=== PATIENT | female | born 1975 | race Caucasian/White ===

== ENCOUNTER 2023-10-09 06:59 | Emergency (ER) | payer OTHER, MEDICAID, SELFPAY ==
[2023-10-09] VITALS (8 sets, daily range): BP systolic 117–138; BP diastolic 71–83; PULSE 95–122; RESP 20; TEMP 36.4–37.3; O2SAT 94–100; BMI 24.0
--- NOTE | 2023-10-09 07:16 | ED_ITS ---
HPI - General Adult General Chief complaint: Abdominal Pain Stated complaint: gallbladder issues, vomiting, not urinating Time Seen by Provider: 10/09/23 07:07 Source: patient Mode of arrival: Ambulatory Limitations: no limitations History of Present Illness HPI narrative: Patient is a 48-year-old female here for evaluation of upper abdominal discomfort. She states she thinks that she maybe passing gallstones. Has never been diagnosed with gallstones or had her gallbladder evaluated. Pain is in the upper abdomen and wraps around her back. Has been present for ?some time? she was also here because of having nausea and vomiting. She also states she would ?heat stroke? 2 times in a week. She thinks that the amount that she was drinking is not equivalent to the amount that she was urinating. She was still urinating. She did urinate this morning. No fevers. Related Data Previous Rx's Medication Instructions Recorded cyclobenzaprine 10 mg tablet 10 mg PO TID PRN muscle spasm #12 10/09/23 tabs Review of Systems Review of Systems ROS Unobtainable: All systems reviewed & are unremarkable except as noted in HPI and below Patient History Social History Smoking Status: Former smoker Exam Initial Vital Signs Initial Vital Signs: Vital Signs Pulse Rate 121 H 10/09/23 07:17 Blood Pressure 117/73 10/09/23 07:17 Pulse Oximetry 94 10/09/23 07:17 Const General: cooperative, comfortable and No ill appearing HENMT Head: normal to inspection and normocephalic Resp Effort & Inspection: normal respiratory effort Auscultation: clear to auscultation bilaterally Cardio Rate: regular rate Rhythm: regular rhythm GI Inspection: normal to inspection and non-distended Palpation: soft, No firm, No guarding and No tender Skin General: no rashes or lesions noted Neuro General: patient alert and patient awake Course Orders Ordered: ED Orders 10/09/23 07:17 US abdomen limited Stat 10/09/23 07:40 Complete Blood Count AUTO DIFF Stat Comprehensive Metabolic Panel Stat Lipase Stat 10/09/23 07:54 EKG-12 Lead Routine 10/09/23 08:08 XR abdomen 1V Stat 10/09/23 09:40 Urine Microscopic Stat Discontinued Medications Sodium Chloride (Normal Saline 0.9%) 1,000 mls @ 1,000 mls/hr IV BOLUS ONE Stop: 10/09/23 08:15 Last Infusion: 10/09/23 08:32 Dose: Infused Documented By: Admin: 10/09/23 07:57 Dose: 1,000 mls/hr Documented By: ELEONORA Ondansetron HCl (Ondansetron 4 Mg/2 Ml Inj) 4 mg IV NOW ONE Stop: 10/09/23 07:10 Last Admin: 10/09/23 07:57 Dose: 4 mg Documented By: ELEONORA Vital Signs Vital signs: Vital Signs - 8 hr 10/09/23 07:17 10/09/23 07:17 10/09/23 07:22 Temperature 99.1 F Pulse Rate 121 H 95 H Respiratory Rate 20 Blood Pressure 117/73 117/73 Pulse Oximetry 94 98 Oxygen Delivery Method Room Air 10/09/23 07:30 10/09/23 08:00 10/09/23 08:30 Temperature Pulse Rate 122 H 109 H 111 H Respiratory Rate Blood Pressure Pulse Oximetry 100 99 99 Oxygen Delivery Method 10/09/23 08:30 Temperature Pulse Rate Respiratory Rate Blood Pressure 122/71 Pulse Oximetry Oxygen Delivery Method Medical Decision Making Lab Data Lab results reviewed: Yes I reviewed the patient's lab results. 10/09/23 07:40 10/09/23 07:40 Labs: Lab Results 10/09/23 Range/Units 07:40 WBC 9.5 (4.5-11.0) X10^3/uL RBC 3.43 L (4.0-5.2) X10^6/uL Hgb 12.1 (12.0-16.0) g/dL Hct 35.0 L (36-46) % MCV 102.2 H (80-100) fL MCH 35.3 H (26-34) PG MCHC 34.5 (30-36) % RDW 14.3 (11.6-14.8) % Plt Count 132 L (150-400) X10^3/uL Neut % (Auto) 83.4 H (50-75) % Lymph % (Auto) 3.4 L (25-40) % [place] % (Auto) 11.7 (3-14) % Eos % (Auto) 0.4 L (2-4) % Baso % (Auto) 1.1 (0-2) % Neut # (Auto) 7900 H (5010-2916) /uL Lymph # (Auto) 300 L (5374-9981) /uL [place] # (Auto) 1100 H (0-900) /uL Eos # (Auto) 0 (0-450) /uL Baso # (Auto) 100 (0-100) /uL RBC Morphology Normal morphology Sodium 126 L (137-145) mmol/L Potassium 3.7 (3.4-5.1) mmol/L Chloride 96 L (98-107) mmol/L Carbon Dioxide 20 L (22-32) mmol/L BUN 12 (7-17) mg/dL Creatinine 0.69 (0.52-1.04) mg/dL Estimated GFR > 60 (>60) mL/min BUN/Creatinine Ratio 17.4 (6-22) Glucose 139 H (70-100) mg/dL Calcium 8.5 (8.4-10.2) mg/dL Total Bilirubin 1.3 (0.2-1.3) mg/dL AST 31 (14-36) IU/L ALT 29 (<35) IU/L Alkaline Phosphatase 80 (38-126) U/L Total Protein 6.8 (6.3-8.2) g/dL Albumin 3.7 (3.5-5.0) g/dL Globulin 3.1 (1.7-4.1) g/dL Albumin/Globulin Ratio 1.2 (1.0-2.8) Lipase 22 L (23-300) U/L Urine Dip Bedside Urine Glucose Negative Bedside Urine Bilirubin - Negative Bedside Urine Ketone ++ 40 Urine Specific [place] 1.025 Bedside Urine Occult Blood +/- Bedside Urine pH 6.0 Bedside Urine Protein ++ 100 Bedside Urine Urobilinogen +/- 1mg Bedside Urine Nitrite - Negative Bedside Urine Leukocytes - Negative Esterase Point of care testing: Urine Dip Bedside Urine Glucose Negative Bedside Urine Bilirubin - Negative Bedside Urine Ketone ++ 40 Urine Specific [place] 1.025 Bedside Urine Occult Blood +/- Bedside Urine pH 6.0 Bedside Urine Protein ++ 100 Bedside Urine Urobilinogen +/- 1mg Bedside Urine Nitrite - Negative Bedside Urine Leukocytes - Negative Esterase Imaging Data US - abdomen: Radiologist's Impression: PROCEDURE: US ABDOMEN LIMITED INDICATIONS: RUQ PAIN TECHNIQUE: Real-time focused scanning was performed of the abdomen, with image documentation. COMPARISON: None. FINDINGS: Liver measures 18 cm. Overall unremarkable sonographic appearance. Gallbladder is unremarkable. No stones or focal tenderness. CBD is 5 mm, within normal limits. Visualized pancreas is unremarkable. IMPRESSION: No acute right upper quadrant sonographic abnormality. Abdominal x-ray: Radiologist's Impression: PROCEDURE: XR ABDOMEN 1V INDICATIONS: upper abd pain possible constipation TECHNIQUE: One view of the abdomen acquired. COMPARISON: None. FINDINGS: Surgical changes and devices: None. Bowel: Bowel gas pattern is normal. Soft tissues: No suspicious abdominal calcifications. Visualized solid organ contours appear normal in size. Bones: No suspicious bony lesions. IMPRESSION: Nonobstructive bowel gas pattern. No significant stool burden. MDM Narrative Medical decision making narrative: Labs unremarkable. X-ray is unremarkable. Right upper quadrant ultrasound is unremarkable. She was not retaining urine. No signs of infection. No fevers. She does have ketones in her urine which can be indicative of a degree of dehydration which is what she was concerned about. No indication for antibiotics. No indication for admission to the hospital. No indication for surgical consultation. Will discharge patient home with return precautions. She expressed understanding and agreement with plan. Discharge Plan Departure Patient Disposition: Home Clinical Impression: Abdominal pain Instructions: DI for Abdominal Pain-Adult Activity Restrictions/Additional Instructions: I do recommend that you increase your fluid intake. Also recommend a bland diet for the next couple days that you can advance as tolerated. You can contact [phone] to help you establish a primary doctor in the local area. He was the muscle relaxers as needed. Return to the emergency department for new symptoms. Prescriptions: New cyclobenzaprine 10 mg tablet 10 mg PO TID PRN (Reason: muscle spasm) Qty: 12 0RF Stand Alone Forms: Patient Portal/API
--- NOTE | 2023-10-09 07:17 | DI.US.S_ITS ---
PROCEDURE: US ABDOMEN LIMITED INDICATIONS: RUQ PAIN TECHNIQUE: Real-time focused scanning was performed of the abdomen, with image documentation. COMPARISON: None. FINDINGS: Liver measures 18 cm. Overall unremarkable sonographic appearance. Gallbladder is unremarkable. No stones or focal tenderness. CBD is 5 mm, within normal limits. Visualized pancreas is unremarkable. IMPRESSION: No acute right upper quadrant sonographic abnormality. Dictated by: Bharathi Paiz M.D. on 10/09/2023 at 8:03 Approved by: Bharathi Paiz M.D. on 10/09/2023 at 8:04
--- NOTE | 2023-10-09 07:54 | EKG_ITS ---
[address] [address] [address] [address] Test Date: 2023-10-09 Pat Name: Diana Lino Department: Room: Gender: Female Nuclear Medicine Technician: KYLAH : 1975 Requested By: Order Number: [id number] Reading MD: Bi Sr MD Measurements Intervals [place] Rate: 111 P: 55 NE: 142 QRS: 73 QRSD: 82 T: 61 QT: 320 QTc: 435 Interpretive Statements Sinus tachycardia Electronically Signed On 10-09-2023 17:21:57 PDT by Bi Sr MD
[2023-10-09] MEDS: SODIUM CHLORIDE 0.9% 1,000 ML 1000 ML IV (07:57)
[2023-10-09] MEDS: ONDANSETRON 4 MG/2 ML INJ IV (07:57)
[2023-10-09 08:00] LABS: Basophils Absolute Auto 100 /uL (0-100); Basophils Percent Auto 1.1 % (0-2); Eosinophils Absolute Auto 0 /uL (0-450); Eosinophils Percent Auto 0.4 % (2-4); Hemoglobin 12.1 g/dL (12.0-16.0); Lymphocytes Absolute Auto 300 /uL (1100-4500); Lymphocytes Percent Auto 3.4 % (25-40); Mean Corpuscular HGB Conc 34.5 % (30-36); Mean Corpuscular Hemoglobin 35.3 PG (26-34); Mean Corpuscular Volume 102.2 fL (80-100); Monocytes Absolute Auto 1100 /uL (0-900); Monocytes Percent Auto 11.7 % (3-14); Neutrophils Absolute Auto 7900 /uL (1500-7000); Neutrophils Percent Auto 83.4 % (50-75); Platelet Count 132 X10^3/uL (150-400); Red Blood Cell Count 3.43 X10^6/uL (4.0-5.2); Red Cell Distribution Width 14.3 % (11.6-14.8); White Blood Cell Count 9.5 X10^3/uL (4.5-11.0)
[2023-10-09 08:01] LABS: Add Manual Diff / Slide Review SLIDE REVIEW
[2023-10-09 08:03] LABS: Alanine Aminotransferase 29 IU/L (<35); Albumin 3.7 g/dL (3.5-5.0); Albumin Globulin Ratio 1.2 (1.0-2.8); Alkaline Phosphatase 80 U/L (38-126); Aspartate Aminotransferase 31 IU/L (14-36); BUN Creatinine Ratio 17.4 (6-22); Bilirubin Total 1.3 mg/dL (0.2-1.3); Blood Urea Nitrogen 12 mg/dL (7-17); Calcium 8.5 mg/dL (8.4-10.2); Carbon Dioxide 20 mmol/L (22-32); Chloride 96 mmol/L (98-107); Estimated Glomerular Filt Rate > 60 mL/min (>60); Globulin 3.1 g/dL (1.7-4.1); Glucose 139 mg/dL (70-100); HEMOLYSIS 35 (0-50); Lipase 22 U/L (23-300); Potassium 3.7 mmol/L (3.4-5.1); Sodium 126 mmol/L (137-145); Total Protein 6.8 g/dL (6.3-8.2)
--- NOTE | 2023-10-09 08:08 | DI.RAD.S_ITS ---
PROCEDURE: XR ABDOMEN 1V INDICATIONS: upper abd pain possible constipation TECHNIQUE: One view of the abdomen acquired. COMPARISON: None. FINDINGS: Surgical changes and devices: None. Bowel: Bowel gas pattern is normal. Soft tissues: No suspicious abdominal calcifications. Visualized solid organ contours appear normal in size. Bones: No suspicious bony lesions. IMPRESSION: Nonobstructive bowel gas pattern. No significant stool burden. Dictated by: Yoshi Gibson M.D. on 10/09/2023 at 9:07 Approved by: Yoshi Gibson M.D. on 10/09/2023 at 9:08
[2023-10-09 08:55] LABS: RBC Morphology Normal Morphology
[2023-10-09 10:18] LABS: Bacteria Urine Few (2-10); Culture Indicated Urine Specimen Cultured; RBC Urine 1-5/HPF (0-5/HPF); Squamous Epithelial Cell Urine 1-5 /HPF (0-5/HPF); Urine Volume 10mL (spun); WBC Urine 10-30/HPF (0-5/HPF)
== END 2023-10-09 10:17 | disposition home or self-care (01) ==
PROVIDERS: Emergency Provider Emergency Medicine
DX: R10.11 Right upper quadrant pain (principal)
CPT/HCPCS: 36415; 51798; 74018; 76705; 80053; 81003; 81015; 83690; 85025; 87077; 87086; 87186; 93005; 93010; 96361; 96374; 99284; J2405

== ENCOUNTER 2024-01-20 07:52 | Emergency (ER) | payer OTHER, MEDICAID, SELFPAY ==
[2024-01-20] VITALS (13 sets, daily range): BP systolic 100–145; BP diastolic 61–94; PULSE 80–110; RESP 14–26; TEMP 36.5; O2SAT 85–100; BMI 22.3
--- NOTE | 2024-01-20 08:19 | ED_ITS ---
HPI - Nausea/Vomiting/Diarrhea General Chief complaint: Nausea/Vomiting/Diarrhea Stated complaint: fatigue, abd pain Time Seen by Provider: 01/20/24 08:11 History of Present Illness HPI Narrative: Patient here with her son. Complaints 12 days of nausea and vomiting with epigastric discomfort. Pain is worse with trying to eat. She has been under lot of stress. No regular NSAIDs. Drinks occasionally through the week but no heavy drinking she states. Denies abdominal surgical history. No urinary complaints no back pain. No fever chills. No cough cold or congestion. Patient is seen here October 2023 for similar complaints. Had unremarkable blood work and ultrasound of the abdomen. No CT scans done. No prior history of gastritis or acid reflux. No history of endoscopy Related Data Previous Rx's Medication Instructions Recorded cyclobenzaprine 10 mg tablet 10 mg PO TID PRN muscle spasm #12 10/09/23 tabs ondansetron 4 mg disintegrating 4 mg PO Q8H PRN nausea and 01/20/24 tablet vomiting #20 tabs pantoprazole 40 mg tablet,delayed 40 mg PO DAILY #30 tabs 01/20/24 release (Protonix) Allergies Allergy/AdvReac Type Severity Reaction Status Date / Time No Known Drug Allergies Allergy Verified 01/20/24 08:24 Review of Systems Review of Systems Narrative: GENERAL: Negative chills, fatigue, malaise, fever, sweats. HEENT: Negative sinus pain, ear pain, sore throat RESPIRATORY: Negative dyspnea, cough CARDIOVASCULAR: Negative chest pain, palpitations GASTROINTESTINAL: Positive nausea, vomiting, abdominal pain : Negative dysuria, frequency, hematuria MUSCULOSKELETAL: Negative muscle or bony pain SKIN: Negative rash, skin lesions NEUROLOGIC: Negative weakness, numbness ROS Unobtainable: All systems reviewed & are unremarkable except as noted in HPI and below Patient History Social History Smoking Status: Former smoker Smoking Status: Former smoker alcohol intake frequency: a few times a week Substance Use Type: marijuana and methamphetamine Exam Narrative Exam Narrative: GENERAL: in no distress, not toxic not dyspneic HEAD: Normocephalic. EYES: Pupils equal round ENT: Mucous membranes moist. NECK: Trachea midline. CARDIOVASCULAR: Regular rate and rhythm RESPIRATORY: Clear to auscultation. Breath sounds equal bilaterally. No wheezes, rales, or rhonchi. GASTROINTESTINAL: Abdomen soft, mild epigastric tenderness no peritoneal signs bowel sounds are present. Negative Sullivan sign. Bowel sounds are present, no pain out of portion exam. No guarding or rebound. No CVA tenderness EXTREMITIES: No gross deformities. BACK: No flank tenderness. NEURO: AOx4. SKIN: Warm and dry PSYCH: Not anxious, is cooperative Initial Vital Signs Initial Vital Signs: Vital Signs Pulse Rate 110 H 01/20/24 08:01 Pulse Oximetry 96 01/20/24 08:01 Course Orders Ordered: Discontinued Medications Al Hydrox/Mg Hydrox/Simethicone 20 ml/ Lidocaine HCl 15 ml 0 ml PO NOW ONE Stop: 01/20/24 08:19 Last Admin: 01/20/24 09:12 Dose: 35 ml Documented By: JOSE Sodium Chloride (Normal Saline 0.9%) 1,000 mls @ 1,000 mls/hr IV BOLUS ONE Stop: 01/20/24 09:17 Last Infusion: 01/20/24 10:37 Dose: Infused Documented By: Admin: 01/20/24 09:08 Dose: 1,000 mls/hr Documented By: JOSE Ondansetron HCl (Ondansetron 4 Mg/2 Ml Inj) 4 mg IV NOW ONE Stop: 01/20/24 08:18 Last Admin: 01/20/24 09:09 Dose: 4 mg Documented By: JOSE Pantoprazole Sodium (Pantoprazole 40 Mg Vial) 40 mg IV NOW ONE Stop: 01/20/24 08:18 Last Admin: 01/20/24 09:09 Dose: 40 mg Documented By: JOSE Vital Signs Vital signs: Vital Signs - 8 hr 01/20/24 08:01 01/20/24 08:02 01/20/24 08:02 Temperature Pulse Rate 110 H 105 H Respiratory Rate Blood Pressure 145/93 H Pulse Oximetry 96 96 Oxygen Delivery Method 01/20/24 08:13 01/20/24 08:30 01/20/24 09:00 Temperature 97.7 F Pulse Rate 105 H 94 H 96 H Respiratory Rate 16 18 16 Blood Pressure 145/93 H Pulse Oximetry 97 96 96 Oxygen Delivery Method Room Air 01/20/24 09:10 01/20/24 09:10 01/20/24 09:36 Temperature Pulse Rate 99 H 104 H Respiratory Rate 26 H 14 Blood Pressure 104/70 Pulse Oximetry 100 85 L Oxygen Delivery Method 01/20/24 09:36 01/20/24 10:00 01/20/24 10:00 Temperature Pulse Rate 88 Respiratory Rate 17 Blood Pressure 142/94 H 113/73 Pulse Oximetry 98 Oxygen Delivery Method 01/20/24 10:30 01/20/24 10:30 01/20/24 11:00 Temperature Pulse Rate 84 Respiratory Rate 17 Blood Pressure 111/65 100/61 Pulse Oximetry 99 Oxygen Delivery Method 01/20/24 11:00 01/20/24 11:30 01/20/24 11:30 Temperature Pulse Rate 94 H 109 H Respiratory Rate 18 17 Blood Pressure 104/61 Pulse Oximetry 94 94 Oxygen Delivery Method 01/20/24 12:00 01/20/24 12:00 Temperature Pulse Rate 91 H Respiratory Rate 17 Blood Pressure 102/67 Pulse Oximetry 96 Oxygen Delivery Method MDM - Nausea/Vomiting/Diarrhea Lab Data 01/20/24 08:45 01/20/24 08:45 Labs: Lab Results 01/20/24 01/20/24 Range/Units 08:32 08:45 WBC 5.5 (4.5-11.0) X10^3/uL RBC 3.61 L (4.0-5.2) X10^6/uL Hgb 13.1 (12.0-16.0) g/dL Hct 38.6 (36-46) % MCV 106.9 H (80-100) fL MCH 36.2 H (26-34) PG MCHC 33.9 (30-36) % RDW 15.2 H (11.6-14.8) % Plt Count 216 (150-400) X10^3/uL Neut % (Auto) 59.4 (50-75) % Lymph % (Auto) 23.9 L (25-40) % [place] % (Auto) 13.8 (3-14) % Eos % (Auto) 1.9 L (2-4) % Baso % (Auto) 1.0 (0-2) % Neut # (Auto) 3300 (5077-8195) /uL Lymph # (Auto) 1300 (5882-9401) /uL [place] # (Auto) 800 (0-900) /uL Eos # (Auto) 100 (0-450) /uL Baso # (Auto) 100 (0-100) /uL Sodium 136 L (137-145) mmol/L Potassium 3.7 (3.4-5.1) mmol/L Chloride 94 L (98-107) mmol/L Carbon Dioxide 25 (22-32) mmol/L BUN 7 (7-17) mg/dL Creatinine 0.62 (0.52-1.04) mg/dL Estimated GFR > 60 (>60) mL/min BUN/Creatinine Ratio 11.3 (6-22) Glucose 91 (70-100) mg/dL Calcium 9.7 (8.4-10.2) mg/dL Total Bilirubin 0.7 (0.2-1.3) mg/dL AST 199 H (14-36) IU/L ALT 122 H (<35) IU/L Alkaline Phosphatase 78 (38-126) U/L Total Protein 7.8 (6.3-8.2) g/dL Albumin 4.7 (3.5-5.0) g/dL Globulin 3.1 (1.7-4.1) g/dL Albumin/Globulin Ratio 1.5 (1.0-2.8) Lipase 109 (23-300) U/L Serum , Qual Negative (Negative) Chlamy pneumoniae PCR Not detected (Not Detect) Adenovirus (PCR) Not detected (Not Detect) B. pertussis DNA (PCR) Not detected (Not Detect) B.parapertussis DNA PCR Not detected (Not Detecte) Coronavirus OC43 (PCR) Not detected (Not Detect) Coronavirus HKU1 (PCR) Not detected (Not Detect) Coronavirus 229E (PCR) Not detected (Not Detect) SARS-CoV-2 (PCR) Not detected (Not Detecte) Coronavirus NL63 (PCR) Not detected (Not Detect) Human Metapneumovir PCR Not detected (Not Detect) Influenza Type A (PCR) Not detected (Not Detect) Influenza Type B (PCR) Not detected (Not Detect) M. pneumoniae (PCR) Not detected (Not Detect) Parainfluenza 1 (PCR) Not detected (Not Detect) Parainfluenza 2 (PCR) Not detected (Not Detect) Parainfluenza 3 (PCR) Not detected (Not Detect) Parainfluenza 4 (PCR) Not detected (Not Detect) RSV (PCR) Not detected (Not Detect) Entero/Rhino (PCR) Not detected (Not Detect) Imaging Data CT scan - abdomen/pelvis: Radiologist's Impression: [address] [address] [address] Scan Report Signed Patient: Abdulaziz Ruiz MR#: [id number] : 01/17/1946 Acct:[id number] Age/Sex: 78 / M Date of Service: 01/20/24 Loc: ED Accession Number: [id number] Procedure: CT angio chest PE protocol Ordering Provider: Jarett Watkins MD PROCEDURE: CT ANGIO CHEST PE PROTOCOL INDICATIONS: Dyspnea TECHNIQUE: After the administration of intravenous contrast, 2 mm thick sections acquired from the pulmonary apices to the posterior costophrenic angles. 3-dimensional maximum intensity projection (MIP) coronal and sagittal reformats were then acquired through the thorax. For radiation dose reduction, the following was used: automated exposure control, adjustment of mA and/or kV according to patient size. COMPARISON: None. FINDINGS: Image quality: Diagnostic. Pulmonary arteries: Pulmonary arteries are normal in size, and demonstrate no intraluminal filling defects to suggest central pulmonary embolism. Lower Neck: No enlarged lymph nodes. Thyroid: No thyroid nodules which require sonographic follow up, per consensus guidelines. Axillae: No enlarged lymph nodes. Chest Wall: Left chest wall generator with cardiac leads. Bones: Unremarkable. Lungs and Pleura: Multifocal consolidation, predominantly within the left lower lobe and right middle lobe. Superimposed bronchial thickening. Airways are clear otherwise. Heart: Heart size is enlarged, with a prosthetic aortic valve. No pericardial effusion. Thoracic Vessels: No aortic aneurysm. Mediastinum and Niki: Reactive mediastinal lymph nodes. Esophagus: No wall thickening. No hiatal hernia. Upper Abdomen: Reflux of contrast into the IVC, indicating elevated right heart pressures. IMPRESSION: No pulmonary embolus. Multifocal consolidation, either infection or possibly aspiration due to distribution. Correlate with risk factors for aspiration and consider speech pathology referral. Recommend follow-up in 1-2 months with chest x-ray to ensure resolution. Reflux of contrast into the IVC, indicating elevated heart pressures. Dictated by: Christiano Zaldivar M.D. on 01/20/2024 at 9:30 Approved by: Christiano Zaldivar M.D. on 01/20/2024 at 9:35 US - abdomen: Radiologist's Impression: [address] [address] Ultrasound Report Signed Patient: Diana Lino MR#: [id number] : 1975 Acct:[id number] Age/Sex: 48 / F Date of Service: 01/20/24 Loc: ED Accession Number: [id number] Procedure: US abdomen limited Ordering Provider: Jarett Watkins MD PROCEDURE: US ABDOMEN LIMITED INDICATIONS: Abdominal pain/attention gallbladder TECHNIQUE: Real-time scanning was performed of the abdominal and retroperitoneal organs, with image documentation. COMPARISON: [facility], US, US ABDOMEN LIMITED, 10/09/2023, 7:34. [facility], CT, CT ABDOMEN PELVIS W CON, 01/20/2024, 9:28. FINDINGS: Liver: Increased liver echogenicity with posterior attenuation, most consistent with moderate to severe steatosis. Gallbladder: No gallstones. No wall thickening. No pericholecystic edema. Negative sonographic Sullivan's sign. Biliary ducts: Intrahepatic bile ducts are non-dilated. Extrahepatic bile duct caliber measures 6 mm. Normal is 6-7 mm or less in diameter, or 10 mm or less post-cholecystectomy. Pancreas: Visualized portions of the pancreas are sonographically normal. Miscellaneous: No free abdominal fluid. IMPRESSION: No gallbladder pathology. Moderate to severe hepatic steatosis. Dictated by: Christiano Zaldivar M.D. on 01/20/2024 at 12:38 Approved by: Christiano Zaldivar M.D. on 01/20/2024 at 12:39 [facility] Narrative Medical decision making narrative: Patient here with her son. Complaints 12 days of nausea and vomiting with epigastric discomfort. Pain is worse with trying to eat. She has been under lot of stress. No regular NSAIDs. Drinks occasionally through the week but no heavy drinking she states. Denies abdominal surgical history. No urinary complaints no back pain. No fever chills. No cough cold or congestion. Patient is seen here October 2023 for similar complaints. Had unremarkable blood work and ultrasound of the abdomen. No CT scans done. No prior history of gastritis or acid reflux. No history of endoscopy After history and exam CBC CMP lipase respiratory panel Zofran Protonix GI panel CT abdomen pelvis normal saline urinalysis test [facility] Medical records reviewed: October 2023 visit here for abdominal pain Differential considered: Includes but not limited to gastritis acid reflux pancreatitis cholecystitis cholelithiasis bowel obstruction viral gastritis Lab Test results independently reviewed as above. Pertinent findings: WBC 5.5 hemoglobin 13.1 hematocrit 38.6 AST 109 9 ALT 122 total bilirubin 0.7 alkaline phosphatase 78 lipase 109- negative respiratory panel Imaging studies independently reviewed: CT abdomen pelvis thickening of lower esophagus/esophagitis/malignancy gallbladder sludge versus stones but no wall thickening ultrasound abdomen no acute finding Consultations: none indicated at this time Treatments: Zofran Protonix Maalox normal saline Re-evaluations: 10:07 a.m.. Awoke patient she was sleeping. She states feels much better after medications provided here. No pain no nausea. Awaiting for gallbladder ultrasound to be completed Discussion: appropriate for discharge home likely gastritis/esophagitis. Patient feeling much better after medications here. Return precautions reviewed. She desires discharge home. Referral for General surgery for future endoscopy provided. Diagnosis: Acute gastritis Discharge Plan Departure Patient Disposition: Home Clinical Impression: Acute vomiting Gastritis Qualifiers: Gastritis type: unspecified gastritis Chronicity: unspecified Gastritis bleeding: without bleeding Qualified Code(s): K29.70 - Gastritis, unspecified, without bleeding Instructions: DI for Gastritis, DI for Vomiting -- Adult Activity Restrictions/Additional Instructions: your exam and laboratory studies and imaging studies are reassuring. CT scan imaging does show some irritation of the stomach and esophagus. No fried fatty greasy foods or carbonated drinks. No spicy foods. Please call provided general surgery office this week to schedule endoscopy of your stomach and esophagus. Prescriptions have been sent to your pharmacy to continue. Return if worse if any questions or concerns Prescriptions: New ondansetron 4 mg tablet,disintegrating 4 mg PO Q8H PRN (Reason: nausea and vomiting) Qty: 20 0RF pantoprazole [Protonix] 40 mg tablet,delayed release (DR/EC) 40 mg PO DAILY Qty: 30 0RF No Action cyclobenzaprine 10 mg tablet 10 mg PO TID PRN (Reason: muscle spasm) Qty: 12 0RF Referrals: John Lopez MD [Physician] - Stand Alone Forms: Patient Portal/API/Survey
[2024-01-20 08:59] LABS: Add Manual Diff / Slide Review NO; Basophils Absolute Auto 100 /uL (0-100); Eosinophils Absolute Auto 100 /uL (0-450); Eosinophils Percent Auto 1.9 % (2-4); Hematocrit 38.6 % (36-46); Hemoglobin 13.1 g/dL (12.0-16.0); Lymphocytes Absolute Auto 1300 /uL (1100-4500); Lymphocytes Percent Auto 23.9 % (25-40); Mean Corpuscular HGB Conc 33.9 % (30-36); Mean Corpuscular Hemoglobin 36.2 PG (26-34); Mean Corpuscular Volume 106.9 fL (80-100); Monocytes Absolute Auto 800 /uL (0-900); Monocytes Percent Auto 13.8 % (3-14); Neutrophils Absolute Auto 3300 /uL (1500-7000); Neutrophils Percent Auto 59.4 % (50-75); Platelet Count 216 X10^3/uL (150-400); Red Blood Cell Count 3.61 X10^6/uL (4.0-5.2); Red Cell Distribution Width 15.2 % (11.6-14.8); White Blood Cell Count 5.5 X10^3/uL (4.5-11.0)
[2024-01-20] MEDS: SODIUM CHLORIDE 0.9% 1,000 ML 1000 ML IV (09:08)
[2024-01-20] MEDS: ONDANSETRON 4 MG/2 ML INJ IV (09:09)
[2024-01-20] MEDS: PANTOPRAZOLE 40 MG VIAL IV (09:09)
[2024-01-20] MEDS: MAG HYDROX/ALUMINUM/SIMETH SUS 20 ML, LIDOCAINE VISCOUS 2% 15 ML PO (09:12)
[2024-01-20 09:13] LABS: Alanine Aminotransferase 122 IU/L (<35); Albumin 4.7 g/dL (3.5-5.0); Albumin Globulin Ratio 1.5 (1.0-2.8); Alkaline Phosphatase 78 U/L (38-126); Aspartate Aminotransferase 199 IU/L (14-36); BUN Creatinine Ratio 11.3 (6-22); Bilirubin Total 0.7 mg/dL (0.2-1.3); Blood Urea Nitrogen 7 mg/dL (7-17); Calcium 9.7 mg/dL (8.4-10.2); Carbon Dioxide 25 mmol/L (22-32); Chloride 94 mmol/L (98-107); Estimated Glomerular Filt Rate > 60 mL/min (>60); Globulin 3.1 g/dL (1.7-4.1); Glucose 91 mg/dL (70-100); HEMOLYSIS < 15 (0-50); Lipase 109 U/L (23-300); Potassium 3.7 mmol/L (3.4-5.1); Sodium 136 mmol/L (137-145); Total Protein 7.8 g/dL (6.3-8.2)
[2024-01-20 09:16] LABS: Pregnancy Test Serum,Qual Negative (Negative)
--- NOTE | 2024-01-20 09:30 | DI.CT.S_ITS ---
PROCEDURE: CT ABDOMEN PELVIS W CON INDICATIONS: Abdominal pain TECHNIQUE: After the administration of intravenous contrast, axial sections acquired from the lung bases to the pubic symphysis. Coronal and sagittal reformats were performed. For radiation dose reduction, the following was used: automated exposure control, adjustment of mA and/or kV according to patient size. COMPARISON: None. FINDINGS: Image quality: Diagnostic. Lower Chest: Marked wall thickening of the lower esophagus. Enlarged periesophageal lymph node measuring 6 millimeter short axis (series 2, image 1). Small hiatal hernia. Calcified juxtapleural nodule in the left lower lobe. ABDOMEN: Liver: Severe hepatic steatosis. Gallbladder: Gallbladder sludge versus small stones. No wall thickening or pericholecystic edema to suggest acute cholecystitis. Biliary ducts: No biliary dilation. Pancreas: No ductal dilation. Spleen: Size is within normal limits. Adrenal Glands: No adrenal nodules. Kidneys and Ureters: No hydronephrosis. No solid mass. No complex renal cystic lesion which requires follow up. Stomach and Bowel: Normal colonic caliber, without significant wall thickening. Normal appendix. No significant diverticular disease. Peritoneum: No abnormal intraperitoneal fluid. No free air. Ventral Wall: No significant ventral hernia. Abdominal Nodes: No retroperitoneal or mesenteric adenopathy by size criteria. Vessels: Aorta and inferior vena cava are normal in size. PELVIS: Pelvic Organs: Unremarkable. Bladder: No bladder wall thickening, accounting for underdistention. Pelvic Nodes: No enlarged lymph nodes. Miscellaneous: No inguinal hernias are seen. Bones: No aggressive osseous abnormality. IMPRESSION: Marked thickening of the lower esophagus. Differential includes esophagitis or malignancy. Direct visualization is recommended given extent. Severe hepatic steatosis. Correlate with elevated liver enzymes, as findings could indicate steatohepatitis. Dictated by: Christiano Zaldivar M.D. on 01/20/2024 at 9:53 Approved by: Christiano Zaldivar M.D. on 01/20/2024 at 9:58
[2024-01-20 09:46] LABS: Adenovirus Not Detected (Not Detect); B. parapertussis Not Detected (Not Detecte); Bordetella pertussis Not Detected (Not Detect); Chlamydophila pneumoniae Not Detected (Not Detect); Coronavirus 229E Not Detected (Not Detect); Coronavirus HKU1 Not Detected (Not Detect); Coronavirus NL 63 Not Detected (Not Detect); Coronavirus OC43 Not Detected (Not Detect); Human Metapneumovirus Not Detected (Not Detect); Human Rhinovirus/Enterovirus Not Detected (Not Detect); Influenza A Not Detected (Not Detect); Influenza B Not Detected (Not Detect); Mycoplasma pneumoniae Not Detected (Not Detect); Parainfluenza Virus 1 Not Detected (Not Detect); Parainfluenza Virus 2 Not Detected (Not Detect); Parainfluenza Virus 3 Not Detected (Not Detect); Parainfluenza Virus 4 Not Detected (Not Detect); Respiratory Syncytial Virus Not Detected (Not Detect); SARS- CoV-2 Not Detected (Not Detecte)
--- NOTE | 2024-01-20 10:01 | DI.US.S_ITS ---
PROCEDURE: US ABDOMEN LIMITED INDICATIONS: Abdominal pain/attention gallbladder TECHNIQUE: Real-time scanning was performed of the abdominal and retroperitoneal organs, with image documentation. COMPARISON: [facility], US, US ABDOMEN LIMITED, 10/09/2023, 7:34. [facility], CT, CT ABDOMEN PELVIS W CON, 01/20/2024, 9:28. FINDINGS: Liver: Increased liver echogenicity with posterior attenuation, most consistent with moderate to severe steatosis. Gallbladder: No gallstones. No wall thickening. No pericholecystic edema. Negative sonographic Sullivan's sign. Biliary ducts: Intrahepatic bile ducts are non-dilated. Extrahepatic bile duct caliber measures 6 mm. Normal is 6-7 mm or less in diameter, or 10 mm or less post-cholecystectomy. Pancreas: Visualized portions of the pancreas are sonographically normal. Miscellaneous: No free abdominal fluid. IMPRESSION: No gallbladder pathology. Moderate to severe hepatic steatosis. Dictated by: Christiano Zaldivar M.D. on 01/20/2024 at 12:38 Approved by: Christiano Zaldivar M.D. on 01/20/2024 at 12:39
== END 2024-01-20 13:01 | disposition home or self-care (01) ==
PROVIDERS: Emergency Provider Emergency Medicine
DX: K29.70 Gastritis, unspecified, without bleeding (principal); R11.10 Vomiting, unspecified; R06.00 Dyspnea, unspecified; R10.9 Unspecified abdominal pain
CPT/HCPCS: 36415; 51798; 74177; 76705; 80053; 83690; 84703; 85025; 87633; 96361; 96374; 96375; 99284; J2405; J2470; Q9967

== ENCOUNTER 2024-04-20 21:10 | Inpatient (IN) | payer OTHER, SELFPAY ==
[2024-04-20 21:19] VITALS: BP 107/81; PULSE 126; RESP 18; TEMP 36.4; O2SAT 97; BMI 20.5
[2024-04-20 23:10] VITALS: PULSE 121; O2SAT 95
[2024-04-20 23:11] VITALS: BP 116/73; PULSE 121; O2SAT 97
[2024-04-20 23:30] VITALS: BP 122/82; PULSE 128; O2SAT 95
--- NOTE | 2024-04-20 23:48 | PC.NURSE ---
Pt resting quietly with eyes closed, resps even and not labored upon RN entering room. Pt rouses easily to verbal stimuli. Pt currently connected to blood pressure and pulse ox monitors with alarms on and audible. Call light within reach.
[2024-04-21] VITALS (11 sets, daily range): BP systolic 123–168; BP diastolic 73–110; PULSE 94–127; RESP 14–19; TEMP 36.2–36.6; O2SAT 95–100; BMI 20.5
--- NOTE | 2024-04-21 01:38 | ED_ITS ---
HPI - Extremity Problem General Chief complaint: Extremity Problem,Nontraumatic Stated complaint: bilat foot pain Time Seen by Provider: 04/21/24 01:38 Source: patient Mode of arrival: Wheelchair History of Present Illness HPI Narrative: 49-year-old female with bilateral foot pain for 1 month, denies history of athlete's foot, has tried [id number] moisturizer creams, unclear if she has actually tried any antifungal creams. No injuries recalled. No changes in footwear. No new activities. No puncture wounds. No fevers or chills. Painful to wqlk on both feet. No puncture or wound recalled. No redness to tops of feet, nor forelegs knees thighs. Related Data Previous Rx's Medication Instructions Recorded cyclobenzaprine 10 mg tablet 10 mg PO TID PRN muscle spasm #12 10/09/23 tabs ondansetron 4 mg disintegrating 4 mg PO Q8H PRN nausea and 01/20/24 tablet vomiting #20 tabs pantoprazole 40 mg tablet,delayed 40 mg PO DAILY #30 tabs 01/20/24 release (Protonix) Allergies Allergy/AdvReac Type Severity Reaction Status Date / Time No Known Drug Allergies Allergy Verified 01/20/24 08:24 Patient History Social History household members: significant other and children Smoking Status: Current every day smoker Smoking Status: Current every day smoker tobacco type: cigarettes alcohol intake frequency: a few times a week Exam Narrative Exam Narrative: GENERAL: Well-developed patient, in mild distress. HEAD: Atraumatic. Normocephalic. EYES: Pupils equal round and reactive. Extraocular motions intact. No scleral icterus. No injection or drainage. ENT: Nose without bleeding, purulent drainage. Throat without erythema, tonsillar hypertrophy or exudate. Airway patent. NECK: Trachea midline. Non tender CARDIOVASCULAR: Regular rate and rhythm without murmurs, gallops, or rubs. RESPIRATORY: Clear to auscultation. Breath sounds equal bilaterally. No wheezes, rales, or rhonchi. GASTROINTESTINAL: Abdomen soft, non-tender, nondistended. EXTREMITIES: No edema or joint tenderness. BACK: Nontender without deformity or crepitance. No flank tenderness. NEURO: AOx3. Motor functions grossly nonfocal SKIN: No rash or erythema of visible areas Initial Vital Signs Initial Vital Signs: Vital Signs Temperature 97.5 F L 04/20/24 21:19 Pulse Rate 126 H 04/20/24 21:19 Respiratory Rate 18 04/20/24 21:19 Blood Pressure 107/81 04/20/24 21:19 Pulse Oximetry 97 04/20/24 21:19 Oxygen Delivery Method Room Air 04/20/24 21:19 Course Orders Ordered: Acetaminophen (Acetaminophen 325 Mg Tablet) 975 mg PO Q8H PRN PRN Reason: Pain, Mild (1-3) Last Admin: 04/21/24 09:07 Dose: 975 mg Documented By: SCOTT Cyclobenzaprine HCl (Cyclobenzaprine 10 Mg Tablet) 10 mg PO TID PRN PRN Reason: muscle spasm Last Admin: 04/21/24 09:08 Dose: 10 mg Documented By: Admin: 04/21/24 07:07 Dose: 10 mg Documented By: ABBY Hydromorphone HCl (Hydromorphone 0.5 Mg Inj) 0.5 mg IV Q3H PRN PRN Reason: Breakthrough Pain Ceftriaxone Sodium 1,000 mg/ (Sodium Chloride) 100 mls @ 200 mls/hr IV Q24H BILLY Vancomycin HCl 1,000 mg/ (Sodium Chloride) 250 mls @ 250 mls/hr IV Q6H BILLY Ketorolac Tromethamine (Ketorolac 10 Mg Tablet) 10 mg PO Q6HR PRN PRN Reason: Pain, Moderate (4-6) Stop: 04/26/24 08:44 Last Admin: 04/21/24 09:08 Dose: 10 mg Documented By: SCOTT Oxycodone HCl (Oxycodone Ir 5 Mg Tablet) 5 mg PO Q4HR PRN PRN Reason: Pain, Severe (7-10) Last Admin: 04/21/24 14:06 Dose: 5 mg Documented By: Admin: 04/21/24 11:06 Dose: 5 mg Documented By: INDIRA Pantoprazole Sodium (Pantoprazole Dr 40 Mg Tablet) 40 mg PO DAILY [facility] Last Admin: 04/21/24 09:08 Dose: 40 mg Documented By: SCOTT Vancomycin HCl (Vancomycin Per Pharmacy) 1 request MIS NOW PRN PRN Reason: cellulitis Vancomycin HCl (Vancomycin Trough) 1 request [facility] [place] [address] [facility] Stop: 04/22/24 15:31 Discontinued Medications Acetaminophen (Acetaminophen 325 Mg Tablet) 650 mg PO NOW ONE Stop: 04/21/24 03:42 Last Admin: 04/21/24 03:44 Dose: 650 mg Documented By: EDGARD Ceftriaxone Sodium 1,000 mg/ (Sodium Chloride) 100 mls @ 200 mls/hr IV NOW ONE Stop: 04/21/24 02:05 Last Infusion: 04/21/24 03:02 Dose: Infused Documented By: Admin: 04/21/24 02:26 Dose: 200 mls/hr Documented By: EDGARD Sodium Chloride (Normal Saline 0.9%) 1,000 mls @ 1,000 mls/hr IV BOLUS ONE Stop: 04/21/24 03:08 Last Infusion: 04/21/24 04:00 Dose: Infused Documented By: Admin: 04/21/24 02:27 Dose: 1,000 mls/hr Documented By: EDGARD Sodium Chloride (Normal Saline 0.9%) 1,000 mls @ 1,000 mls/hr IV BOLUS ONE Stop: 04/21/24 04:03 Last Infusion: 04/21/24 04:51 Dose: Infused Documented By: Infusion: 04/21/24 04:47 Dose: 0 mls/hr Documented By: Admin: 04/21/24 04:00 Dose: 1,000 mls/hr Documented By: EDGARD Vancomycin HCl 2,000 mg/ (Sodium Chloride) 500 mls @ 250 mls/hr IV NOW ONE Stop: 04/21/24 05:45 Last Admin: 04/21/24 06:35 Dose: 250 mls/hr Documented By: ABBY Fluconazole (Diflucan) 400 mg in 200 mls @ 100 mls/hr IV NOW ONE Stop: 04/21/24 07:47 Last Admin: 04/21/24 08:03 Dose: Not Given Documented By: SCOTT Sodium Chloride (Normal Saline 0.9%) 1,000 mls @ 250 mls/hr IV CONT [facility] Last Admin: 04/21/24 06:29 Dose: 250 mls/hr Documented By: ABBY Fluconazole (Diflucan) 400 mg in 200 mls @ 100 mls/hr IV NOW ONE Stop: 04/21/24 10:59 Ketorolac Tromethamine (Ketorolac 30 Mg/Ml Vial) 30 mg IM NOW ONE Stop: 04/21/24 02:03 Last Admin: 04/21/24 04:01 Dose: Not Given Documented By: EDGARD Ketorolac Tromethamine (Ketorolac 30 Mg/Ml Vial) 15 mg IV NOW ONE Stop: 04/21/24 02:09 Last Admin: 04/21/24 02:26 Dose: 15 mg Documented By: EDGARD Vital Signs Vital signs: Vital Signs - 8 hr 04/20/24 23:10 04/20/24 23:11 04/20/24 23:11 Pulse Rate 121 H 121 H Respiratory Rate Blood Pressure 116/73 Pulse Oximetry 95 97 Oxygen Delivery Method 04/20/24 23:30 04/20/24 23:30 04/21/24 00:00 Pulse Rate 128 H Respiratory Rate Blood Pressure 122/82 123/73 Pulse Oximetry 95 Oxygen Delivery Method 04/21/24 00:00 04/21/24 00:30 04/21/24 00:30 Pulse Rate 127 H 119 H Respiratory Rate 14 18 Blood Pressure 134/92 H Pulse Oximetry 97 95 Oxygen Delivery Method Room Air 04/21/24 04:40 04/21/24 04:40 04/21/24 05:00 Pulse Rate 106 H 108 H Respiratory Rate 18 Blood Pressure 141/88 H Pulse Oximetry 99 98 Oxygen Delivery Method 04/21/24 05:02 04/21/24 05:02 04/21/24 05:30 Pulse Rate 108 H 107 H Respiratory Rate 18 18 Blood Pressure 150/93 H Pulse Oximetry 99 99 Oxygen Delivery Method MDM - Extremity (Nontraumatic) Lab Data Attestation: I reviewed the patient's lab results. Lab results narrative: White blood cell count 6700, hemoglobin 13.4, platelets 258,000. Sodium 138, potassium 4.6, chloride 103, serum CO2 21, BUN 8 crit creatinine 0.4, glucose 108. Liver functions normal. CRP not elevated. Procalcitonin not elevated. ESR not elevated. 04/21/24 02:30 04/21/24 02:30 Labs: Lab Results 04/21/24 04/21/24 04/21/24 Range/Units 02:30 04:46 05:48 WBC 6.7 (4.5-11.0) X10^3/uL RBC 3.94 L (4.0-5.2) X10^6/uL Hgb 13.4 (12.0-16.0) g/dL Hct 39.8 (36-46) % MCV 101.1 H (80-100) fL MCH 34.0 (26-34) PG MCHC 33.7 (30-36) % RDW 20.1 H (11.6-14.8) % Plt Count 258 (150-400) X10^3/uL Neut % (Auto) 59.1 (50-75) % Lymph % (Auto) 28.0 (25-40) % [place] % (Auto) 9.9 (3-14) % Eos % (Auto) 2.3 (2-4) % Baso % (Auto) 0.7 (0-2) % Neut # (Auto) 4000 (7745-2250) /uL Lymph # (Auto) 1900 (7071-7373) /uL [place] # (Auto) 700 (0-900) /uL Eos # (Auto) 200 (0-450) /uL Baso # (Auto) 0 (0-100) /uL RBC Morphology See below Anisocytosis 1+ H Macrocytosis 1+ H ESR 4 (0-20) MM/HR Sodium 138 (137-145) mmol/L Potassium 4.6 (3.4-5.1) mmol/L Chloride 103 (98-107) mmol/L Carbon Dioxide 21 L (22-32) mmol/L BUN 8 (7-17) mg/dL Creatinine 0.41 L (0.52-1.04) mg/dL Estimated GFR > 60 (>60) mL/min BUN/Creatinine Ratio 19.5 (6-22) Glucose 108 H (70-100) mg/dL Lactate 3.2 H 3.1 H (0.7-2.1) mmol/L Calcium 8.9 (8.4-10.2) mg/dL Total Bilirubin 0.4 (0.2-1.3) mg/dL AST 57 H (14-36) IU/L ALT 25 (<35) IU/L Alkaline Phosphatase 80 (38-126) U/L C-Reactive Protein < 0.5 (<1.0) mg/dL Total Protein 7.1 (6.3-8.2) g/dL Albumin 3.9 (3.5-5.0) g/dL Globulin 3.2 (1.7-4.1) g/dL Albumin/Globulin Ratio 1.2 (1.0-2.8) Procalcitonin 0.038 (<0.5) ng/mL Urine Color Yellow Urine Appearance Clear Urine pH 6.5 (4.5-8.0) Ur Specific Wilson 1.020 (1.000-1.035) Urine Protein Negative (Negative) Urine Glucose (UA) Negative (Negative) g/dL Urine Ketones Negative (NEGATIVE) Urine Occult Blood Negative (Negative) Urine Nitrate Positive H (Negative) Urine Bilirubin Negative (NEGATIVE) Urine Urobilinogen 0.2 (0.2) E.U./dL Ur Leukocyte Esterase 1+ H (NEGATIVE) Urine RBC None seen (0-5/HPF) Urine WBC 10-30/hpf H (0-5/HPF) Ur Squamous Epith Cells 1-5 /hpf (0-5/HPF) Urine Bacteria Many (>30) H (None) Ur Culture Indicated? Specimen cultured Vol Urine Centrifuged 10ml (spun) U Opiates 300ng/mL cut Negative (Negative) Ur Oxycodone Screen Negative (Negative) Urine Methadone Screen Negative (Negative) Ur Barbiturates Screen Negative (Negative) U Tricyclic Antidepress Negative (Negative) Ur Phencyclidine Scrn Negative (Negative) Ur Amphetamines Screen Negative (Negative) U Methamphetamines Scrn Negative (Negative) Ur MDMA Scrn (Ecstasy) Negative (Negative) U Benzodiazepines Scrn Negative (Negative) Urine Cocaine Screen Negative (Negative) U Marijuana (THC) Screen Negative (Negative) Urine Specific Wilson (Normal) Ur Creatinine (Normal) 04/21/24 Range/Units 05:48 WBC (4.5-11.0) X10^3/uL RBC (4.0-5.2) X10^6/uL Hgb (12.0-16.0) g/dL Hct (36-46) % MCV (80-100) fL MCH (26-34) PG MCHC (30-36) % RDW (11.6-14.8) % Plt Count (150-400) X10^3/uL Neut % (Auto) (50-75) % Lymph % (Auto) (25-40) % [place] % (Auto) (3-14) % Eos % (Auto) (2-4) % Baso % (Auto) (0-2) % Neut # (Auto) (1184-9138) /uL Lymph # (Auto) (1523-4625) /uL [place] # (Auto) (0-900) /uL Eos # (Auto) (0-450) /uL Baso # (Auto) (0-100) /uL RBC Morphology Anisocytosis Macrocytosis ESR (0-20) MM/HR Sodium (137-145) mmol/L Potassium (3.4-5.1) mmol/L Chloride (98-107) mmol/L Carbon Dioxide (22-32) mmol/L BUN (7-17) mg/dL Creatinine (0.52-1.04) mg/dL Estimated GFR (>60) mL/min BUN/Creatinine Ratio (6-22) Glucose (70-100) mg/dL Lactate (0.7-2.1) mmol/L Calcium (8.4-10.2) mg/dL Total Bilirubin (0.2-1.3) mg/dL AST (14-36) IU/L ALT (<35) IU/L Alkaline Phosphatase (38-126) U/L C-Reactive Protein (<1.0) mg/dL Total Protein (6.3-8.2) g/dL Albumin (3.5-5.0) g/dL Globulin (1.7-4.1) g/dL Albumin/Globulin Ratio (1.0-2.8) Procalcitonin (<0.5) ng/mL Urine Color Urine Appearance Urine pH Normal (4.5-8.0) Ur Specific Wilson (1.000-1.035) Urine Protein (Negative) Urine Glucose (UA) (Negative) g/dL Urine Ketones (NEGATIVE) Urine Occult Blood (Negative) Urine Nitrate (Negative) Urine Bilirubin (NEGATIVE) Urine Urobilinogen (0.2) E.U./dL Ur Leukocyte Esterase (NEGATIVE) Urine RBC (0-5/HPF) Urine WBC (0-5/HPF) Ur Squamous Epith Cells (0-5/HPF) Urine Bacteria (None) Ur Culture Indicated? Vol Urine Centrifuged U Opiates 300ng/mL cut (Negative) Ur Oxycodone Screen (Negative) Urine Methadone Screen (Negative) Ur Barbiturates Screen (Negative) U Tricyclic Antidepress (Negative) Ur Phencyclidine Scrn (Negative) Ur Amphetamines Screen (Negative) U Methamphetamines Scrn (Negative) Ur MDMA Scrn (Ecstasy) (Negative) U Benzodiazepines Scrn (Negative) Urine Cocaine Screen (Negative) U Marijuana (THC) Screen (Negative) Urine Specific Wilson Normal (Normal) Ur Creatinine Normal (Normal) MDM Narrative Medical decision making narrative: 49-year-old female with bilateral foot pain erythema, some redness along the right fifth toe with lateral foot. No punctures or ulcers or tinea pedis like changes, no intertriginous ulcerations or blistering. Possibly cellulitis, does not seem consistent with tinea pedis in superinfection but this is possible, no known thermal frostbite or heat injury, no change in footwear. Tachycardia noted, UDS pending. X-rays both feet. CBC, CMP, ESR, CRP, procalcitonin levels pending X-ray right foot and x-ray left foot, no acute findings per tele radiology reports. Lab results: White blood cell count 6700, hemoglobin 13.4, platelets 258,000. Sodium 138, potassium 4.6, chloride 103, serum CO2 21, BUN 8 crit creatinine 0.4, glucose 108. Liver functions normal. CRP not elevated. Procalcitonin not elevated. ESR not elevated. Lactate elevation 3.2, blood cultures, IVF 2L bolus, IV ceftriaxone for bilateral foot cellulitis. EKG shows sinus tachycardia. Persisting tachycardia in the monitor, fluid bolus completed, repeat lactate 3.1 not changed much. We will contact hospitalist regarding admission 0545, case discussed with hospitalist Dr. Lino, sepsis suspected, persisting tachycardia, no obvious tinea pedis by exam but reasonable to cover for fungal infection, will add IV Diflucan, add vancomycin for MRSA coverage, requests also of chest x-ray and urinalysis to look for other sources of infection, accepts patient for admission to inpatient UDS negative, urinalysis suspicious for infection, IV ceftriaxone given prior should cover urinary tract infection. Hospitalist updated by [employer] text about additional diagnosis of UTI. Critical Care Time Critical Care Time Critical Care Time: Yes Total Critical Care Time: 35 Attestation: The high probability of a clinically significant, sudden or life threatening deterioration of the [musculoskeletal, cardiopulmonary, genitourinary, abdominopelvic] system(s) required my full and direct attention, intervention and personal management. The aggregate critical care time was [35] minutes. This time is in addition to time spent performing reported procedures but includes the following: [x] Data Review and interpretation [x] Patient assessment and monitoring of vital signs [x] Documentation [x] Medication orders and management Discharge Plan Departure Patient Disposition: Admitted As Inpatient Clinical Impression: Cellulitis of left foot, Cellulitis of right foot, Tachycardia, Sepsis, Urinary tract infection Admit Date/Time: 04/21/24 05:50 Admit Provider: Torrey Lino
--- NOTE | 2024-04-21 02:04 | DI.RAD.S_ITS ---
PROCEDURE: XR FOOT RT MIN 3V INDICATIONS: right foot pain TECHNIQUE: 3 views of the foot were acquired. COMPARISON: None. FINDINGS: Bones: No fractures or dislocations. No suspicious bony lesions. Soft tissues: No tibiotalar joint effusion. Achilles tendon appears normal. IMPRESSION: No acute bony abnormality. Dictated by: Christiano Zaldivar M.D. on 04/21/2024 at 9:00 Approved by: Christiano Zaldivar M.D. on 04/21/2024 at 9:01
--- NOTE | 2024-04-21 02:04 | DI.RAD.S_ITS ---
PROCEDURE: XR FOOT LT MIN 3V INDICATIONS: left foot pain TECHNIQUE: 3 views of the foot were acquired. COMPARISON: None. FINDINGS: Bones: No fractures or dislocations. No suspicious bony lesions. Soft tissues: No tibiotalar joint effusion. Achilles tendon appears normal. IMPRESSION: No acute bony abnormality. Agree with preliminary report. Dictated by: Christiano Zaldivar M.D. on 04/21/2024 at 9:01 Approved by: Christiano Zaldivar M.D. on 04/21/2024 at 9:01
[2024-04-21] MEDS: KETOROLAC 30 MG/ML VIAL 15 MG IV (02:26)
[2024-04-21] MEDS: cefTRIAXone 1,000 MG in SODIUM CHLORIDE 0.9% 100 ML 200 MG IV (02:26)
[2024-04-21] MEDS: SODIUM CHLORIDE 0.9% 1,000 ML 1000 ML IV ×2 (02:27→04:00)
[2024-04-21 02:48] LABS: Add Manual Diff / Slide Review NO; Basophils Absolute Auto 0 /uL (0-100); Basophils Percent Auto 0.7 % (0-2); Eosinophils Absolute Auto 200 /uL (0-450); Eosinophils Percent Auto 2.3 % (2-4); Hematocrit 39.8 % (36-46); Hemoglobin 13.4 g/dL (12.0-16.0); Lymphocytes Absolute Auto 1900 /uL (1100-4500); Mean Corpuscular HGB Conc 33.7 % (30-36); Mean Corpuscular Volume 101.1 fL (80-100); Monocytes Absolute Auto 700 /uL (0-900); Monocytes Percent Auto 9.9 % (3-14); Neutrophils Absolute Auto 4000 /uL (1500-7000); Neutrophils Percent Auto 59.1 % (50-75); Platelet Count 258 X10^3/uL (150-400); Red Blood Cell Count 3.94 X10^6/uL (4.0-5.2); Red Cell Distribution Width 20.1 % (11.6-14.8); White Blood Cell Count 6.7 X10^3/uL (4.5-11.0)
[2024-04-21 02:50] LABS: Lactate (Lactic Acid) 3.2 mmol/L (0.7-2.1)
[2024-04-21 02:51] LABS: Alanine Aminotransferase 25 IU/L (<35); Albumin 3.9 g/dL (3.5-5.0); Albumin Globulin Ratio 1.2 (1.0-2.8); Alkaline Phosphatase 80 U/L (38-126); Aspartate Aminotransferase 57 IU/L (14-36); BUN Creatinine Ratio 19.5 (6-22); Bilirubin Total 0.4 mg/dL (0.2-1.3); Blood Urea Nitrogen 8 mg/dL (7-17); Calcium 8.9 mg/dL (8.4-10.2); Carbon Dioxide 21 mmol/L (22-32); Chloride 103 mmol/L (98-107); Estimated Glomerular Filt Rate > 60 mL/min (>60); Globulin 3.2 g/dL (1.7-4.1); Glucose 108 mg/dL (70-100); HEMOLYSIS < 15 (0-50); Potassium 4.6 mmol/L (3.4-5.1); Sodium 138 mmol/L (137-145); Total Protein 7.1 g/dL (6.3-8.2)
[2024-04-21 02:55] LABS: C-Reactive Protein Quant < 0.5 mg/dL (<1.0)
[2024-04-21 03:08] LABS: Procalcitonin 0.038 ng/mL (<0.5)
[2024-04-21 03:13] LABS: Anisocytosis 1+; Macrocytosis 1+
[2024-04-21 03:17] LABS: Erythrocyte Sedimentation Rate 4 MM/HR (0-20)
[2024-04-21] MEDS: ACETAMINOPHEN 325 MG TABLET 650 MG PO (03:44)
[2024-04-21 04:13] LABS: Reflexed Lactate in 2 Hours Y
[2024-04-21 05:04] LABS: Lactate 2HR (Lactic Acid Rflx) 3.1 mmol/L (0.7-2.1)
--- NOTE | 2024-04-21 05:24 | EKG_ITS ---
[facility] [address] [address] Test Date: 2024-04-21 Pat Name: Diana Lino Department: [facility] Room: Gender: Female [employer] Tender: VLADIMIR GODINEZ : 1975 Requested By: Order Number: [id number] Reading MD: Bi Sr MD Measurements Intervals [place] Rate: 110 P: 58 OR: 150 QRS: 73 QRSD: 74 T: 57 QT: 354 QTc: 479 Interpretive Statements Sinus tachycardia Electronically Signed On 04-21-2024 7:41:10 PST by Bi Sr MD
--- NOTE | 2024-04-21 05:41 | DI.RAD.S_ITS ---
PROCEDURE: XR CHEST 1V INDICATIONS: eval for infection TECHNIQUE: One view of the chest was acquired. COMPARISON: None. FINDINGS: Surgical changes and devices: Left humeral shaft orthopedic hardware. Lungs and pleura: Lungs are clear. No pleural effusions or pneumothorax. Mediastinum: Mediastinal contours appear normal. Heart size is normal. Bones and chest wall: No suspicious bony lesions. Overlying soft tissues appear unremarkable. IMPRESSION: No acute cardiopulmonary abnormality is seen. Dictated by: Lalo Pandey M.D. on 04/21/2024 at 11:39 Approved by: Lalo Pandye M.D. on 04/21/2024 at 11:39
[2024-04-21 05:52] LABS: Appearance Urine UA CLEAR; Bilirubin Urine UA NEGATIVE (NEGATIVE); Color Urine UA YELLOW; Glucose Urine UA NEGATIVE (Negative); Ketones Urine UA NEGATIVE (NEGATIVE); Leukocyte Esterase Urine UA 1+ (NEGATIVE); Nitrite Urine UA POSITIVE (Negative); Occult Blood Urine UA NEGATIVE (Negative); Protein Urine UA NEGATIVE (Negative); Urobilinogen Urine UA 0.2 E.U./dL (0.2)
[2024-04-21 05:53] LABS: pH Urine UA 6.5 (4.5-8.0)
[2024-04-21 05:54] LABS: Ur Creatinine Normal (Normal); Ur Specific Gravity Normal (Normal); Urine pH Normal (Normal)
[2024-04-21 05:55] LABS: Urine Amphetamines Negative (Negative); Urine Barbiturates Negative (Negative); Urine Benzodiazepines Negative (Negative); Urine Cocaine Negative (Negative); Urine MDMA Negative (Negative); Urine Methadone Negative (Negative); Urine Methamphetamines Negative (Negative); Urine Opiates Negative (Negative); Urine Oxycodone Negative (Negative); Urine Phencyclidine Negative (Negative); Urine THC Negative (Negative); Urine Tricyclic Antidepressant Negative (Negative); Urine Volume 10mL (spun)
[2024-04-21 06:01] LABS: Bacteria Urine Many (>30); RBC Urine None Seen (0-5/HPF); Squamous Epithelial Cell Urine 1-5 /HPF (0-5/HPF); WBC Urine 10-30/HPF (0-5/HPF)
[2024-04-21 06:02] LABS: Culture Indicated Urine Specimen Cultured
[2024-04-21] MEDS: SODIUM CHLORIDE 0.9% 1,000 ML 250 ML IV (06:29)
[2024-04-21] MEDS: VANCOMYCIN 2,000 MG in SODIUM CHLORIDE 0.9% 500 ML 250 MG IV (06:35)
--- NOTE | 2024-04-21 06:47 | PM.HP.1 ---
History of Present Illness History of Present Illness Chief complaint: bilat foot pain Narrative: 49-year-old female with past medical history of GERD and muscle spasm presents with concerns for cellulitis of both feet. Per the patient's report, the patient does have bilateral foot pain for the last month. The patient denies any prior history of athlete's foot. The patient however noted that the redness and pain worsens over the last few days of her both of her feet. Redness is mainly on the lateral side and bottom of her feet. The patient otherwise denies any fever, chills, nausea, vomiting, diarrhea or chest pain. The patient also denies any cough, shortness of breath or dysuria. The patient states that she has not changed any footwear or has any puncture wounds in her feet. In the emergency room, the patient was hemodynamically stable other than tachycardia. However the patient was hypothermic and lactic acid was 3.2. 2 L IV fluid and IV ceftriaxone given due to concern for cellulitis in both feet. Repeat lactic acid 3.1. Due to the fact that the patient complain of pain in her feet, x-ray of both her feet were done which shows no acute abnormality. UA came back positive for UTI. Vancomycin was added due to concern for cellulitis of both feet. [facility] Social History Smoking Status: Current every day smoker Meds Home Medications and Allergies Home Medications Medication Instructions Recorded Confirmed Type cyclobenzaprine 10 mg tablet 10 mg PO TID PRN muscle spasm #12 10/09/23 Rx tabs ondansetron 4 mg disintegrating 4 mg PO Q8H PRN nausea and 01/20/24 Rx tablet vomiting #20 tabs pantoprazole 40 mg tablet,delayed 40 mg PO DAILY #30 tabs 01/20/24 Rx release (Protonix) Allergies Allergy/AdvReac Type Severity Reaction Status Date / Time No Known Drug Allergies Allergy Verified 01/20/24 08:24 Review of Systems Review of Systems ROS: Yes All systems reviewed with the patient and are negative except as otherwise documented Exam Vital Signs (past 8 hours): - 04/20/24 23:10 04/20/24 23:11 04/20/24 23:11 Temperature Pulse Rate 121 H 121 H Respiratory Rate Blood Pressure 116/73 Pulse Oximetry 95 97 Oxygen Delivery Method Oxygen Flow Rate 04/20/24 23:30 04/20/24 23:30 04/21/24 00:00 Temperature Pulse Rate 128 H Respiratory Rate Blood Pressure 122/82 123/73 Pulse Oximetry 95 Oxygen Delivery Method Oxygen Flow Rate 04/21/24 00:00 04/21/24 00:30 04/21/24 00:30 Temperature Pulse Rate 127 H 119 H Respiratory Rate 14 18 Blood Pressure 134/92 H Pulse Oximetry 97 95 Oxygen Delivery Method Room Air Oxygen Flow Rate 04/21/24 04:40 04/21/24 04:40 04/21/24 05:00 Temperature Pulse Rate 106 H 108 H Respiratory Rate 18 Blood Pressure 141/88 H Pulse Oximetry 99 98 Oxygen Delivery Method Oxygen Flow Rate 04/21/24 05:02 04/21/24 05:02 04/21/24 05:30 Temperature Pulse Rate 108 H 107 H Respiratory Rate 18 18 Blood Pressure 150/93 H Pulse Oximetry 99 99 Oxygen Delivery Method Oxygen Flow Rate 04/21/24 06:00 04/21/24 06:29 Temperature 97.2 F L Pulse Rate 106 H 105 H Respiratory Rate 18 19 Blood Pressure 148/100 H Pulse Oximetry 99 96 Oxygen Delivery Method Oxygen Flow Rate 0 Oxygen Delivery Method Room Air Oxygen Flow Rate 0 Narrative Exam Narrative: Physical Exam: GENERAL: The patient is not in any acute distressed. Awake and alert. HEENT: Nonicteric sclerae, PERRLA, EOMI. Oropharynx clear. Moist mucous membranes. Conjunctivae appear well perfused. HEART: Regular rate and rhythm without murmurs. No lower extremities edema. LUNGS: Clear to auscultation bilaterally. No wheezing, crackles or rhonchi ABDOMEN: Soft, positive bowel sounds, nontender. SKIN: Erythema noted in both foot more in plantar and lateral aspects compared to dorsum. Otherwise No rash, no excessive bruising, petechiae, or purpura. NEUROLOGIC: AxO x 3. Cranial nerves II-XII intact without motor/sensory deficit. Objective Labs 04/21/24 02:30 04/21/24 02:30 Labs: Laboratory Results - last 24 hr 04/21/24 04/21/24 04/21/24 02:30 04:46 05:48 WBC 6.7 RBC 3.94 L Hgb 13.4 Hct 39.8 MCV 101.1 H MCH 34.0 MCHC 33.7 RDW 20.1 H Plt Count 258 Neut % (Auto) 59.1 Lymph % (Auto) 28.0 [place] % (Auto) 9.9 Eos % (Auto) 2.3 Baso % (Auto) 0.7 Neut # (Auto) 4000 Lymph # (Auto) 1900 [place] # (Auto) 700 Eos # (Auto) 200 Baso # (Auto) 0 RBC Morphology See below Anisocytosis 1+ H Macrocytosis 1+ H ESR 4 Sodium 138 Potassium 4.6 Chloride 103 Carbon Dioxide 21 L BUN 8 Creatinine 0.41 L Estimated GFR > 60 BUN/Creatinine Ratio 19.5 Glucose 108 H Lactate 3.2 H 3.1 H Calcium 8.9 Total Bilirubin 0.4 AST 57 H ALT 25 Alkaline Phosphatase 80 C-Reactive Protein < 0.5 Total Protein 7.1 Albumin 3.9 Globulin 3.2 Albumin/Globulin Ratio 1.2 Procalcitonin 0.038 Urine Color Yellow Urine Appearance Clear Urine pH 6.5 Ur Specific [place] 1.020 Urine Protein Negative Urine Glucose (UA) Negative Urine Ketones Negative Urine Occult Blood Negative Urine Nitrate Positive H Urine Bilirubin Negative Urine Urobilinogen 0.2 Ur Leukocyte Esterase 1+ H Urine RBC None seen Urine WBC 10-30/hpf H Ur Squamous Epith Cells 1-5 /hpf Urine Bacteria Many (>30) H Ur Culture Indicated? Specimen cultured Vol Urine Centrifuged 10ml (spun) U Opiates 300ng/mL cut Negative Ur Oxycodone Screen Negative Urine Methadone Screen Negative Ur Barbiturates Screen Negative U Tricyclic Antidepress Negative Ur Phencyclidine Scrn Negative Ur Amphetamines Screen Negative U Methamphetamines Scrn Negative Ur MDMA Scrn (Ecstasy) Negative U Benzodiazepines Scrn Negative Urine Cocaine Screen Negative U Marijuana (THC) Screen Negative Urine Specific [place] Ur Creatinine 04/21/24 05:48 WBC RBC Hgb Hct MCV MCH MCHC RDW Plt Count Neut % (Auto) Lymph % (Auto) [place] % (Auto) Eos % (Auto) Baso % (Auto) Neut # (Auto) Lymph # (Auto) [place] # (Auto) Eos # (Auto) Baso # (Auto) RBC Morphology Anisocytosis Macrocytosis ESR Sodium Potassium Chloride Carbon Dioxide BUN Creatinine Estimated GFR BUN/Creatinine Ratio Glucose Lactate Calcium Total Bilirubin AST ALT Alkaline Phosphatase C-Reactive Protein Total Protein Albumin Globulin Albumin/Globulin Ratio Procalcitonin Urine Color Urine Appearance Urine pH Normal Ur Specific [place] Urine Protein Urine Glucose (UA) Urine Ketones Urine Occult Blood Urine Nitrate Urine Bilirubin Urine Urobilinogen Ur Leukocyte Esterase Urine RBC Urine WBC Ur Squamous Epith Cells Urine Bacteria Ur Culture Indicated? Vol Urine Centrifuged U Opiates 300ng/mL cut Ur Oxycodone Screen Urine Methadone Screen Ur Barbiturates Screen U Tricyclic Antidepress Ur Phencyclidine Scrn Ur Amphetamines Screen U Methamphetamines Scrn Ur MDMA Scrn (Ecstasy) U Benzodiazepines Scrn Urine Cocaine Screen U Marijuana (THC) Screen Urine Specific [place] Normal Ur Creatinine Normal Assessment & Plan Assessment & Plan narrative: Sepsis. Admit the patient to medical telemetry and as inpatient. Likely source is urinary and cellulitis. Continue treatment with IV antibiotic and IV fluid. Monitor hemodynamic. UTI. Continue IV ceftriaxone and monitor urine culture. Bilateral legs and feet cellulitis. Continue vancomycin and IV ceftriaxone. Patient did get a dose of fluconazole done in the ER for concern of fungal infection. Elevated lactic acid. 3.2 trended to 3.1 after 2 L IV fluid continue IV fluid monitor or trend lactic acid to normal. GERD continue home pantoprazole resolved. DVT prophylaxis heparin subcu. Code Status full code. Disposition likely home in 2 to 3 days. Time-Based Coding :: [TOTAL MINUTES] spent with patient and on the chart (including review of chart, obtaining history, exam, reviewing outside data, placing orders, documenting exam and treatment plan, and counseling patient) on [DATE].
[2024-04-21] MEDS: CYCLOBENZAPRINE 10 MG TABLET PO ×3 (07:07→20:24)
[2024-04-21] MEDS: ACETAMINOPHEN 325 MG TABLET 975 MG PO ×2 (09:07→16:38)
[2024-04-21] MEDS: KETOROLAC 10 MG TABLET PO ×3 (09:08→23:20)
[2024-04-21] MEDS: PANTOPRAZOLE DR 40 MG TABLET PO (09:08)
[2024-04-21 09:59] LABS: Lactate (Lactic Acid) 2.9 mmol/L (0.7-2.1)
[2024-04-21] MEDS: OXYCODONE IR 5 MG TABLET PO ×3 (11:06→20:24)
[2024-04-21 11:15] LABS: Reflexed Lactate in 2 Hours Y
[2024-04-21 13:09] LABS: Lactate 2HR (Lactic Acid Rflx) 2.8 mmol/L (0.7-2.1)
--- NOTE | 2024-04-21 14:52 | CM.DANOTE ---
Initial DCP Assessment Visit Note Reviewed EMR and team rounds for status updates. Met with pt at bedside to introduce self and role, pt was found to be alert/oriented, laying in bed resting. She was able to share her concerns about not being able to work for the last few months due to foot pain, and that she is planning on having her son and Significant Other provide for her care/assistance needs post d/c. Pt lives ind. at baseline in her own apt with SO and son. They will plan to also transport her home once she's medically cleared for home d/c, anticipated for 04/22. She declines any CM d/c assistance or resource needs at this time. Payor: [employer] PCP: Dr. Matta [place] Pt is a 49 year-old F who presented yesterday afternoon to the ED with complaints of bilateral foot pain that has worsened over the last few months, now limiting her mobility and ability to work. She has some increasing redness, however no open wounds or rashes. In the ED, she was suspected to have sepsis, started on IV ABO's and IV diflucan. DCP will continue to monitor for any further CM d/c assistance or resource needs. Discharge Planning/Care Management CM Discharge Assessment Start: 04/21/24 14:50 Freq: Status: Active Protocol: Document 04/21/24 14:50 DPL (Rec: 04/21/24 14:52 DPL [id number]) Discharge Planning Assessment Assigned Division Supervisor LANI Crocker Advance Directives? No History Provided By Patient,Medical Record Has Patient been admitted in last 30 No days? Prior Living Arrangements Apartment/Condo Household Members significant other,children Type of transporation used prior to Drives own vehicle admit Independent with ADL's Yes Is patient alert and oriented? Yes Caregiver for Another Yes: son Comment N/A Comment N/A Comment No anticipated home d/c needs at this time. Barriers to Discharge No Discharge Plan Home Transportation Arrangement Significant Other Referrals Initiated None needed Whiteboard Updated in Patient Room with Yes name and ext. # of Division Supervisor Review Status In Process Please Provide Date Initial DC 04/21/24 Assessment Was Performed
[2024-04-21] MEDS: VANCOMYCIN 1,000 MG in SODIUM CHLORIDE 0.9% 250 ML 250 MG IV ×2 (16:46→23:00)
--- NOTE | 2024-04-21 17:45 | PM.HP.1 ---
History of Present Illness History of Present Illness Date Patient Seen: 04/21/24 Time Patient Seen: 16:00 Chief complaint: bilat foot pain Narrative: Per overnight provider, 49-year-old female with past medical history of GERD and muscle spasm presents with concerns for cellulitis of both feet. Per the patient's report, the patient does have bilateral foot pain for the last month. The patient denies any prior history of athlete's foot. The patient however noted that the redness and pain worsens over the last few days of her both of her feet. Redness is mainly on the lateral side and bottom of her feet. The patient otherwise denies any fever, chills, nausea, vomiting, diarrhea or chest pain. The patient also denies any cough, shortness of breath or dysuria. The patient states that she has not changed any footwear or has any puncture wounds in her feet. In the emergency room, the patient was hemodynamically stable other than tachycardia. However the patient was hypothermic and lactic acid was 3.2. 2 L IV fluid and IV ceftriaxone given due to concern for cellulitis in both feet. Repeat lactic acid 3.1. Due to the fact that the patient complain of pain in her feet, x-ray of both her feet were done which shows no acute abnormality. UA came back positive for UTI. Vancomycin was added due to concern for cellulitis of both feet. [facility] Social History household members: significant other and children Smoking Status: Current every day smoker Meds Home Medications and Allergies Home Medications Medication Instructions Recorded Confirmed Type cyclobenzaprine 10 mg tablet 10 mg PO TID PRN muscle spasm #12 10/09/23 Rx tabs ondansetron 4 mg disintegrating 4 mg PO Q8H PRN nausea and 01/20/24 Rx tablet vomiting #20 tabs pantoprazole 40 mg tablet,delayed 40 mg PO DAILY #30 tabs 01/20/24 Rx release (Protonix) Allergies Allergy/AdvReac Type Severity Reaction Status Date / Time No Known Drug Allergies Allergy Verified 01/20/24 08:24 Review of Systems Review of Systems Narrative: All other systems reviewed with the patient and are negative unless otherwise stated. Exam Vital Signs (past 8 hours): - 04/21/24 12:00 Temperature 98 F Pulse Rate 100 H Respiratory Rate 16 Blood Pressure 150/94 H Oxygen Delivery Method Room Air Oxygen Flow Rate 0 Narrative Exam Narrative: General:? Patient is well developed and well nourished, mildly anxious and uncomfrotable, fidgety. HEENT:? Normocephalic, atraumatic, extraocular muscles intact, oral pharynx is clear and mucous membranes are moist. Neck: supple and symmetric, trachea is midline, no cervical adenopathy. Negative for JVD Chest:? Normal AP diameter and contour without kyphoscoliosis, no tachypnea, equal chest rise bilaterally. Lungs:? CTA b/l no wheezing rhonchi or rales. Cardio:?RRR no m/r/g. Abdomen: S NT ND. Musculoskeletal:? Muscle strength and tone are equal within normal limits, no deformity. Extremities: No edema or joint effusions. No cyanosis or clubbing. Skin:? Pale,? Warm to touch,dry and intact. Bilateral feet with erythema, no warmth, but extremely tender per patient. There is some erythema nodosum noted in her bilateral legs more proximally Objective ECG Impression: Sinus tach Labs 04/21/24 02:30 04/21/24 02:30 Labs: Laboratory Results - last 24 hr 04/21/24 04/21/24 04/21/24 02:30 04:46 05:48 WBC 6.7 RBC 3.94 L Hgb 13.4 Hct 39.8 MCV 101.1 H MCH 34.0 MCHC 33.7 RDW 20.1 H Plt Count 258 Neut % (Auto) 59.1 Lymph % (Auto) 28.0 [place] % (Auto) 9.9 Eos % (Auto) 2.3 Baso % (Auto) 0.7 Neut # (Auto) 4000 Lymph # (Auto) 1900 [place] # (Auto) 700 Eos # (Auto) 200 Baso # (Auto) 0 RBC Morphology See below Anisocytosis 1+ H Macrocytosis 1+ H ESR 4 Sodium 138 Potassium 4.6 Chloride 103 Carbon Dioxide 21 L BUN 8 Creatinine 0.41 L Estimated GFR > 60 BUN/Creatinine Ratio 19.5 Glucose 108 H Lactate 3.2 H 3.1 H Calcium 8.9 Total Bilirubin 0.4 AST 57 H ALT 25 Alkaline Phosphatase 80 C-Reactive Protein < 0.5 Total Protein 7.1 Albumin 3.9 Globulin 3.2 Albumin/Globulin Ratio 1.2 Procalcitonin 0.038 Urine Color Yellow Urine Appearance Clear Urine pH 6.5 Ur Specific [place] 1.020 Urine Protein Negative Urine Glucose (UA) Negative Urine Ketones Negative Urine Occult Blood Negative Urine Nitrate Positive H Urine Bilirubin Negative Urine Urobilinogen 0.2 Ur Leukocyte Esterase 1+ H Urine RBC None seen Urine WBC 10-30/hpf H Ur Squamous Epith Cells 1-5 /hpf Urine Bacteria Many (>30) H Ur Culture Indicated? Specimen cultured Vol Urine Centrifuged 10ml (spun) U Opiates 300ng/mL cut Negative Ur Oxycodone Screen Negative Urine Methadone Screen Negative Ur Barbiturates Screen Negative U Tricyclic Antidepress Negative Ur Phencyclidine Scrn Negative Ur Amphetamines Screen Negative U Methamphetamines Scrn Negative Ur MDMA Scrn (Ecstasy) Negative U Benzodiazepines Scrn Negative Urine Cocaine Screen Negative U Marijuana (THC) Screen Negative Urine Specific [place] Ur Creatinine 04/21/24 04/21/24 04/21/24 05:48 09:27 12:50 WBC RBC Hgb Hct MCV MCH MCHC RDW Plt Count Neut % (Auto) Lymph % (Auto) [place] % (Auto) Eos % (Auto) Baso % (Auto) Neut # (Auto) Lymph # (Auto) [place] # (Auto) Eos # (Auto) Baso # (Auto) RBC Morphology Anisocytosis Macrocytosis ESR Sodium Potassium Chloride Carbon Dioxide BUN Creatinine Estimated GFR BUN/Creatinine Ratio Glucose Lactate 2.9 H 2.8 H Calcium Total Bilirubin AST ALT Alkaline Phosphatase C-Reactive Protein Total Protein Albumin Globulin Albumin/Globulin Ratio Procalcitonin Urine Color Urine Appearance Urine pH Normal Ur Specific [place] Urine Protein Urine Glucose (UA) Urine Ketones Urine Occult Blood Urine Nitrate Urine Bilirubin Urine Urobilinogen Ur Leukocyte Esterase Urine RBC Urine WBC Ur Squamous Epith Cells Urine Bacteria Ur Culture Indicated? Vol Urine Centrifuged U Opiates 300ng/mL cut Ur Oxycodone Screen Urine Methadone Screen Ur Barbiturates Screen U Tricyclic Antidepress Ur Phencyclidine Scrn Ur Amphetamines Screen U Methamphetamines Scrn Ur MDMA Scrn (Ecstasy) U Benzodiazepines Scrn Urine Cocaine Screen U Marijuana (THC) Screen Urine Specific [place] Normal Ur Creatinine Normal Assessment & Plan Assessment & Plan narrative: 1. Possible foot cellulitis / bilateral foot pain, possible subacute bilateral peripheral neuropathy - unclear etiology, reported cellulitis on admission, mild. Bilateral cellulitis is quite rare, however, and no signficant improvement thus far reported despite antibiotics. - will continue antibiotics for now - further evaluation tomorrow to start with ESR/CRP and CK levels. Unclear if rhematologic, or other peripheral neuropathy. - will treat pain, start gabapentin - UDS is negative 2. Asymptomatic bacteruria - Patient without symptoms at this time. UA positive. Any urine bacteria likely treated with ceftriaxone and vancomycin for above cellulitis. 3. sepsis ruled out - patient had tachycardia on presentation, SOFA score is <1 and sepsis is considered ruled out. Code: Full, surrogate is patient's spouse DVT: Lovenox daily I have utilized all available immediate resources to obtain, update, or review the patient's current medications. Dispo: patient admitted under inpatient status. Consider PT/OT but needs better pain control and descernment of the underlying etiology for her presentation. Additional history obtained via discussions with the overnight provider. These discussions contributed to the creation of the above assessment and plan. I have reviewed patient's presenting documentation, labs, and imaging personally. Time-Based Coding :: [TOTAL MINUTES] spent with patient and on the chart (including review of chart, obtaining history, exam, reviewing outside data, placing orders, documenting exam and treatment plan, and counseling patient) on [DATE]. Quality VTE Deep Vein Thrombosis/Pulmonary Embolism Present on Admission: No
[2024-04-21] MEDS: GABAPENTIN 300 MG CAPSULE PO ×2 (18:11→20:24)
[2024-04-21] MEDS: HYDROMORPHONE 0.5 MG INJ IV (18:11)
[2024-04-21] MEDS: cloNIDine 0.1 MG TABLET PO (20:45)
[2024-04-21] MEDS: SODIUM CHLORIDE 0.9% 1,000 ML 100 ML IV (20:47)
[2024-04-22] VITALS (7 sets, daily range): BP systolic 103–138; BP diastolic 60–92; PULSE 89–112; RESP 16–18; TEMP 36.3–37.1; O2SAT 96–99
[2024-04-22] MEDS: ACETAMINOPHEN 325 MG TABLET 975 MG PO (00:54)
[2024-04-22] MEDS: OXYCODONE IR 5 MG TABLET PO ×5 (00:55→22:08)
[2024-04-22] MEDS: cefTRIAXone 1,000 MG in SODIUM CHLORIDE 0.9% 100 ML 200 MG IV (03:09)
[2024-04-22] MEDS: VANCOMYCIN 1,000 MG in SODIUM CHLORIDE 0.9% 250 ML 250 MG IV ×2 (04:40→10:51)
[2024-04-22] MEDS: CYCLOBENZAPRINE 10 MG TABLET PO (05:51)
[2024-04-22 06:38] LABS: Creatine Kinase 45 U/L (30-135)
[2024-04-22 06:44] LABS: Alanine Aminotransferase 23 IU/L (<35); Albumin Globulin Ratio 1.2 (1.0-2.8); Alkaline Phosphatase 64 U/L (38-126); Aspartate Aminotransferase 63 IU/L (14-36); BUN Creatinine Ratio 7.7 (6-22); Bilirubin Total 0.7 mg/dL (0.2-1.3); Blood Urea Nitrogen 3 mg/dL (7-17); Calcium 8.3 mg/dL (8.4-10.2); Carbon Dioxide 26 mmol/L (22-32); Chloride 104 mmol/L (98-107); Estimated Glomerular Filt Rate > 60 mL/min (>60); Globulin 2.6 g/dL (1.7-4.1); Glucose 85 mg/dL (70-100); HEMOLYSIS 32 (0-50); Magnesium 1.5 mg/dL (1.6-2.3); Potassium 4.1 mmol/L (3.4-5.1); Sodium 134 mmol/L (137-145); Total Protein 5.6 g/dL (6.3-8.2)
[2024-04-22 06:45] LABS: Add Manual Diff / Slide Review NO; Basophils Absolute Auto 0 /uL (0-100); Basophils Percent Auto 0.7 % (0-2); Eosinophils Absolute Auto 200 /uL (0-450); Eosinophils Percent Auto 4.8 % (2-4); Hematocrit 34.5 % (36-46); Hemoglobin 11.5 g/dL (12.0-16.0); Lymphocytes Absolute Auto 900 /uL (1100-4500); Lymphocytes Percent Auto 24.3 % (25-40); Mean Corpuscular HGB Conc 33.4 % (30-36); Mean Corpuscular Volume 101.7 fL (80-100); Monocytes Absolute Auto 700 /uL (0-900); Monocytes Percent Auto 18.2 % (3-14); Neutrophils Absolute Auto 2000 /uL (1500-7000); Platelet Count 222 X10^3/uL (150-400); Red Blood Cell Count 3.39 X10^6/uL (4.0-5.2); Red Cell Distribution Width 19.7 % (11.6-14.8); White Blood Cell Count 3.8 X10^3/uL (4.5-11.0)
[2024-04-22 06:48] LABS: Lactate (Lactic Acid) 1.1 mmol/L (0.7-2.1)
[2024-04-22 07:06] LABS: Erythrocyte Sedimentation Rate 4 MM/HR (0-20)
[2024-04-22 08:45] LABS: Vitamin B12 Reflex MMA if <400 290 pg/mL (239-931)
--- NOTE | 2024-04-22 09:11 | DIET.CONS ---
Dietary Consultation Note Admission Date: 04/21/2024 05:50 Assessment: 49 y F admitted for bilat foot pain. Dietitian consulted for poor nutrition. Met with pt at bedside who reports severe pain in feet has led to decrease appetite and nausea. Diet recall in past month only consist of a few soups throughout day and fruit and 1 alcoholic beverage compared to usual intake of 2-3 meals and snacks throughout day. Breakfast tray to side, untouched. Pt reports after she receives her pain meds, she will attempt to eat it. Reports weight 1 month ago was 130 lb, now 121 lb. Nutrition focused physical exam performed: Mild loss temporalis, deltoid, quadriceps, gastrocnemius Ht: 162.56 cm Wt: 54.431 kg BMI: 20.5 UBW: 59 kg per pt 1 month ago (-8% weight loss within 1 month, severe), per EMR 58.967 kg on 01/20/24 (-8% weight loss within 3 months, severe) Last BM: 04/20/24 (04/21/24 06:48) MNA: 11 Anselmo Score: 20 Diet: 04/21/24 Dinner General (Regular) Diet Diet Modifications: Food Texture: Level 7 - Regular Liquid Consistency: Level 0 - Thin Labs: RBC 3.39 X10^6/uL (4.0-5.2) L 04/22/24 06:35 Hgb 11.5 g/dL (12.0-16.0) L 04/22/24 06:35 Hct 34.5 % (36-46) L 04/22/24 06:35 Creatinine 0.39 mg/dL (0.52-1.04) L 04/22/24 05:46 Lactate 1.1 mmol/L (0.7-2.1) 04/22/24 05:46 Nutrition Diagnosis: Moderate acute Protein Calorie Malnutrition r/t inadequate energy-protein intake as evidenced by <75% of estimated energy needs for 1 month per diet recall (moderate), -8% weight loss within 1 month (severe), mild muscle mass loss in deltoid, quadriceps, gastrocnemius Interventions: -Discussed energy-protein dense options pt would be able to tolerate, added sao tomean yogurt/fruit/granola onto meal 1-2x/d -Encouraged small freq meals upon d/c to prevent further weight loss, discussed most tolerated options EER: [id number] kcals (25-30 kcalkg per BMI) 55 g protein (1g/kg age/moderate PCM) Monitoring/Evaluations: PO intakes Electronically Signed by: Roberta Cain 04/22/24 09:11 Clinical Dietitian [address] [id number]
[2024-04-22] MEDS: ENOXAPARIN 40 MG/0.4 ML SYRINGE SUBCUT (09:47)
[2024-04-22] MEDS: THIAMINE 100 MG TABLET PO (09:48)
[2024-04-22] MEDS: cloNIDine 0.1 MG TABLET PO ×2 (09:48→17:39)
[2024-04-22] MEDS: FOLIC ACID 1 MG TABLET PO (09:49)
[2024-04-22] MEDS: PANTOPRAZOLE DR 40 MG TABLET PO (09:49)
[2024-04-22] MEDS: MULTIVITAMIN 1 TABLET 1 TAB PO (09:49)
[2024-04-22] MEDS: GABAPENTIN 300 MG CAPSULE PO ×3 (09:49→21:04)
[2024-04-22] MEDS: MAGNESIUM CHLORIDE 64 MG TABLET 128 MG PO (10:41)
--- NOTE | 2024-04-22 11:10 | CM.DPNOTE ---
DCP Continued: Reviewed EMR and team rounds for pt?s medical status. Per hospitalist, pt discharge pending pain management; suspected neuropathy and not cellulitis. No discharge needs identified at this time. Plan: Anticipating dc home with family when medically stable. CM Team will continue to follow for coordination of discharge plans. LASHA Michelle
--- NOTE | 2024-04-22 12:22 | PM.PN.1 ---
Subjective Subjective Interval history: 49 year old female admitted with bilateral foot pain, possible cellulitis vs bilateral peripheral neuropathy. Foot pain is improved today, though still about a 6/10. Labs showed a slight macrocytic anemia. B12 is 290. ESR and CRP are normal. CK is normal. Exam Vital Signs (past 8 hours): - 04/22/24 08:00 04/22/24 09:48 Temperature 97.8 F Pulse Rate 99 H Respiratory Rate 17 Blood Pressure 138/87 138/87 Oxygen Delivery Method Room Air Oxygen Flow Rate 0 Narrative Exam Narrative: General:? Patient is well developed and well nourished, mildly anxious and uncomfrotable, fidgety. HEENT:? Normocephalic, atraumatic, extraocular muscles intact, oral pharynx is clear and mucous membranes are moist. Neck: supple and symmetric, trachea is midline, no cervical adenopathy. Negative for JVD Chest:? Normal AP diameter and contour without kyphoscoliosis, no tachypnea, equal chest rise bilaterally. Lungs:? CTA b/l no wheezing rhonchi or rales. Cardio:?RRR no m/r/g. Abdomen: S NT ND. Musculoskeletal:? Muscle strength and tone are equal within normal limits, no deformity. Extremities: No edema or joint effusions. No cyanosis or clubbing. Skin:? Pale,? Warm to touch,dry and intact. Bilateral feet with erythema, no warmth, but extremely tender per patient. There is some erythema nodosum noted in her bilateral legs more proximally Objective Labs 04/22/24 06:35 04/22/24 05:46 Labs: Laboratory Results - last 24 hr 04/21/24 04/22/24 04/22/24 12:50 05:46 06:35 WBC 3.8 L RBC 3.39 L Hgb 11.5 L Hct 34.5 L MCV 101.7 H MCH 34.0 MCHC 33.4 RDW 19.7 H Plt Count 222 Neut % (Auto) 52.0 Lymph % (Auto) 24.3 L [place] % (Auto) 18.2 H Eos % (Auto) 4.8 H Baso % (Auto) 0.7 Neut # (Auto) 2000 Lymph # (Auto) 900 L [place] # (Auto) 700 Eos # (Auto) 200 Baso # (Auto) 0 ESR 4 Sodium 134 L Potassium 4.1 Chloride 104 Carbon Dioxide 26 BUN 3 L Creatinine 0.39 L Estimated GFR > 60 BUN/Creatinine Ratio 7.7 Glucose 85 Lactate 2.8 H 1.1 Calcium 8.3 L Magnesium 1.5 L Total Bilirubin 0.7 AST 63 H ALT 23 Alkaline Phosphatase 64 Total Creatine Kinase 45 Total Protein 5.6 L Albumin 3.0 L Globulin 2.6 Albumin/Globulin Ratio 1.2 Vitamin B12 290 REPLACED BY [facility] Social History household members: significant other and children Smoking Status: Current every day smoker Assessment & Plan Assessment & Plan narrative: 1. Possible foot cellulitis / bilateral foot pain, possible subacute bilateral peripheral neuropathy - unclear etiology, reported cellulitis on admission, mild. This is possible, as pain is slightly improving today on antibiotic therapy. ESR, CRP and CK are all normal on lab evaluation today. - will continue antibiotics for now, consider transition to orals tomorrow. - slight macrocytic anemia, with B12 of only 290 (technically lower limit of normal). MMA pending on reflex. Will start B12 supplementation as may be b12 deficiency. - continue standing ibuprofen for possible musculoskeletal causes, started on gabapentin as well. Continue tylenol and opiates prn. Continue therapies. - UDS is negative 2. Asymptomatic bacteruria - Patient without symptoms at this time. UA positive. Any urine bacteria likely treated with ceftriaxone and vancomycin for above cellulitis. 3. sepsis ruled out - patient had tachycardia on presentation, SOFA score is <1 and sepsis is considered ruled out. Code: Full, surrogate is patient's spouse DVT: Lovenox daily I have utilized all available immediate resources to obtain, update, or review the patient's current medications. Dispo: patient admitted under inpatient status. Consider PT/OT but needs better pain control and descernment of the underlying etiology for her presentation. Time-Based Coding :: [TOTAL MINUTES] spent with patient and on the chart (including review of chart, obtaining history, exam, reviewing outside data, placing orders, documenting exam and treatment plan, and counseling patient) on [DATE]. Quality VTE Deep Vein Thrombosis/Pulmonary Embolism Present on Admission: No
[2024-04-22] MEDS: CYANOCOBALAMIN (VITAMIN B-12) 100 MCG TABLET PO (13:34)
[2024-04-22] MEDS: IBUPROFEN 400 MG TABLET 800 MG PO ×2 (15:38→21:04)
[2024-04-22] MEDS: VANCOMYCIN TROUGH 1 REQUEST MISC (15:45)
[2024-04-22 16:24] LABS: Vancomycin Trough 20.8 ug/mL (10-20)
--- NOTE | 2024-04-22 17:04 | PC.NURSE ---
Pt resting at intervals. Med during dayn for pain in bilateral feet. Pt assisted in taking shower. SL intact/patent Call light w/in reach, bed alarm on for pt safety. Continue w/plan of care,
[2024-04-22] MEDS: VANCOMYCIN HCL 750 MG in SODIUM CHLORIDE 0.9% 250 ML 250 MG IV ×2 (17:51→23:55)
[2024-04-23] VITALS (9 sets, daily range): BP systolic 104–132; BP diastolic 80–98; PULSE 18–113; RESP 16–19; TEMP 36.2–36.6; O2SAT 98–100
[2024-04-23] MEDS: cefTRIAXone 1,000 MG in SODIUM CHLORIDE 0.9% 100 ML 200 MG IV (01:23)
[2024-04-23] MEDS: cloNIDine 0.1 MG TABLET PO ×3 (02:18→18:26)
[2024-04-23] MEDS: OXYCODONE IR 5 MG TABLET PO ×5 (03:47→23:46)
[2024-04-23] MEDS: IBUPROFEN 400 MG TABLET 800 MG PO ×3 (05:34→20:45)
[2024-04-23] MEDS: VANCOMYCIN HCL 750 MG in SODIUM CHLORIDE 0.9% 250 ML 250 MG IV (05:34)
[2024-04-23 05:58] LABS: Add Manual Diff / Slide Review NO; Basophils Absolute Auto 0 /uL (0-100); Basophils Percent Auto 0.4 % (0-2); Eosinophils Absolute Auto 200 /uL (0-450); Hematocrit 32.6 % (36-46); Lymphocytes Absolute Auto 900 /uL (1100-4500); Lymphocytes Percent Auto 17.3 % (25-40); Mean Corpuscular HGB Conc 33.7 % (30-36); Mean Corpuscular Hemoglobin 34.6 PG (26-34); Mean Corpuscular Volume 102.6 fL (80-100); Monocytes Absolute Auto 600 /uL (0-900); Monocytes Percent Auto 11.2 % (3-14); Neutrophils Absolute Auto 3500 /uL (1500-7000); Neutrophils Percent Auto 68.1 % (50-75); Platelet Count 241 X10^3/uL (150-400); Red Blood Cell Count 3.17 X10^6/uL (4.0-5.2); Red Cell Distribution Width 20.2 % (11.6-14.8); White Blood Cell Count 5.2 X10^3/uL (4.5-11.0)
[2024-04-23 06:19] LABS: Alanine Aminotransferase 23 IU/L (<35); Albumin 3.2 g/dL (3.5-5.0); Albumin Globulin Ratio 1.1 (1.0-2.8); Alkaline Phosphatase 69 U/L (38-126); Aspartate Aminotransferase 49 IU/L (14-36); BUN Creatinine Ratio 10.6 (6-22); Bilirubin Total 0.2 mg/dL (0.2-1.3); Blood Urea Nitrogen 5 mg/dL (7-17); Calcium 8.6 mg/dL (8.4-10.2); Carbon Dioxide 23 mmol/L (22-32); Chloride 108 mmol/L (98-107); Estimated Glomerular Filt Rate > 60 mL/min (>60); Globulin 2.9 g/dL (1.7-4.1); Glucose 99 mg/dL (70-100); HEMOLYSIS 18 (0-50); Magnesium 1.6 mg/dL (1.6-2.3); Potassium 4.5 mmol/L (3.4-5.1); Sodium 135 mmol/L (137-145); Total Protein 6.1 g/dL (6.3-8.2)
[2024-04-23 06:30] LABS: Anisocytosis 1+; Macrocytosis 1+; Platelet Estimate Adequate on smear
[2024-04-23] MEDS: ENOXAPARIN 40 MG/0.4 ML SYRINGE SUBCUT (08:51)
[2024-04-23] MEDS: PANTOPRAZOLE DR 40 MG TABLET PO (08:52)
[2024-04-23] MEDS: MULTIVITAMIN 1 TABLET 1 TAB PO (08:52)
[2024-04-23] MEDS: GABAPENTIN 300 MG CAPSULE PO ×3 (08:52→20:45)
[2024-04-23] MEDS: THIAMINE 100 MG TABLET PO (08:52)
[2024-04-23] MEDS: CYANOCOBALAMIN (VITAMIN B-12) 100 MCG TABLET PO (08:53)
[2024-04-23] MEDS: FOLIC ACID 1 MG TABLET PO (08:53)
--- NOTE | 2024-04-23 10:14 | PM.PN.1 ---
Subjective Subjective Interval history: 49 year old female admitted with bilateral foot pain, possible cellulitis vs bilateral peripheral neuropathy and asymptomatic bacteriuria. She is being treated empirically w/Rocephin/vanco. Patient reports today her pain has switched from her right foot being the worse to her left foot being the worst. Yesterday it was the opposite. She notes the 1st time this occurred was after COVID about 2 years ago. She developed pain to bilateral feet mostly in the forefoot which lasted about 3 days and subsequently resolved. The 2nd time was about 1 year ago. This episode began perhaps 5 weeks ago but got acutely worse a week before admission. She states it got so bad that she would difficulty walking. She reports that the pain is worse around the MTP joints. She notes that her toes have subsequently become painful and swollen as well. She has no history of gout. She does eat red meat, she does drink alcohol notes she has been drinking more than usual over the last several weeks. She eats seafood but not shellfish. She is not on any prescribed medications chronically. No history of any autoimmune disorders. Exam Vital Signs (past 8 hours): - 04/22/24 16:00 04/22/24 17:39 04/22/24 20:00 Temperature 98.7 F 98.5 F Pulse Rate 112 H 112 H 89 Respiratory Rate 16 16 Blood Pressure 116/86 116/86 103/60 Pulse Oximetry 96 99 Oxygen Flow Rate 0 Oxygen Delivery Method Room Air Oxygen Flow Rate 0 Narrative Exam Narrative: GEN: Middle-aged female, Alert and oriented x 3, NAD HEENT:NC, Face symmetric CHEST: Respiratory excursions symmetric, CTAB CV: RRR, no M/R/G ABD: Soft, NT/ND, BT present in all 4 quadrants, no organomegaly or masses EXTR: warm, well perfused, no C/C, painful, swollen toes on both feet. There is some erythema noted to the left greater than right foot. She is tender with flexion or extension of the toes. No significant pain with palpation of the heels or arches of the feet. No significant warmth. There is some mild peeling skin noted on the soles of the feet. SKIN: warm and dry, no rash NEURO: Alert and oriented x 3, nonfocal Objective Labs 04/23/24 05:33 04/23/24 05:33 Labs: Laboratory Results - last 24 hr 04/22/24 04/22/24 04/22/24 05:46 06:35 15:37 WBC 3.8 L RBC 3.39 L Hgb 11.5 L Hct 34.5 L MCV 101.7 H MCH 34.0 MCHC 33.4 RDW 19.7 H Plt Count 222 Neut % (Auto) 52.0 Lymph % (Auto) 24.3 L [place] % (Auto) 18.2 H Eos % (Auto) 4.8 H Baso % (Auto) 0.7 Neut # (Auto) 2000 Lymph # (Auto) 900 L [place] # (Auto) 700 Eos # (Auto) 200 Baso # (Auto) 0 ESR 4 Sodium 134 L Potassium 4.1 Chloride 104 Carbon Dioxide 26 BUN 3 L Creatinine 0.39 L Estimated GFR > 60 BUN/Creatinine Ratio 7.7 Glucose 85 Lactate 1.1 Calcium 8.3 L Magnesium 1.5 L Total Bilirubin 0.7 AST 63 H ALT 23 Alkaline Phosphatase 64 Total Creatine Kinase 45 Total Protein 5.6 L Albumin 3.0 L Globulin 2.6 Albumin/Globulin Ratio 1.2 Vitamin B12 290 Vancomycin Trough 20.8 H* PFSH Social History household members: significant other and children Smoking Status: Current every day smoker Assessment & Plan Assessment & Plan narrative: 1. Bilat foot pain with swelling localized to the forefoot/toes She is currently being treated empirically for cellulitis. There is the possibility of gout based on the symptoms being localized around the toes and MTP joints. I discussed with her the possibility of gout. Will obtain a uric acid level, though that is not diagnostic as you can have a normal uric acid level and still have gout. Will initiate prednisone 40 mg daily x5 days. We additionally discussed the possibility of an autoimmune process. I will send a screening ABRAHAM. Advised that if there is an autoimmune process it will also improve on the steroids, but likely flare back up after a short steroid burst. If it does appear to be gout, she will need to decrease her alcohol use as well as red meat, cured meats, and shellfish. Will continue empiric antibiotics for now. 2. Asymptomatic bacteriuria Urine culture grew greater than 100,000 colonies of E coli, pansensitive. She was asymptomatic. 3. Macrocytic anemia B12 was within normal limits. Methylmalonic acid pending. She does admit to drinking more heavily recently. This may be the reason for her macrocytosis. 4. Leukopenia Resolved on today's labs. 5. Hyponatremia One hundred thirty-five on today's labs. Improving. 6. Hypomagnesemia Improved on today's labs. Code status Full Prophy On lovenox Dispo Plan to discharge home once she is able to safely ambulate Time-Based Coding :: [TOTAL MINUTES] spent with patient and on the chart (including review of chart, obtaining history, exam, reviewing outside data, placing orders, documenting exam and treatment plan, and counseling patient) on [DATE]. Quality VTE Deep Vein Thrombosis/Pulmonary Embolism Present on Admission: No
[2024-04-23] MEDS: predniSONE 20 MG TABLET 40 MG PO (10:37)
[2024-04-23 13:18] LABS: Uric Acid 2.2 mg/dL (2.5-6.2)
[2024-04-23] MEDS: VANCOMYCIN HCL 750 MG in SODIUM CHLORIDE 0.9% 250 ML 200 MG IV ×3 (13:40→23:46)
[2024-04-23] MEDS: VANCOMYCIN TROUGH 1 REQUEST MISC (14:22)
[2024-04-23 14:32] LABS: Vancomycin Trough 17.5 ug/mL (10-20)
[2024-04-23] MEDS: LORazepam 0.5 MG TABLET PO (20:45)
[2024-04-24] MEDS: HYDROMORPHONE 0.5 MG INJ IV (01:28)
[2024-04-24] MEDS: cefTRIAXone 1,000 MG in SODIUM CHLORIDE 0.9% 100 ML 200 MG IV (01:29)
[2024-04-24 03:00] VITALS: BP 148/81; PULSE 93; RESP 18; TEMP 36.7; O2SAT 100
[2024-04-24] MEDS: IBUPROFEN 400 MG TABLET 800 MG PO (05:29)
[2024-04-24] MEDS: OXYCODONE IR 5 MG TABLET PO ×2 (05:30→08:37)
[2024-04-24] MEDS: VANCOMYCIN HCL 750 MG in SODIUM CHLORIDE 0.9% 250 ML 200 MG IV (05:30)
[2024-04-24 06:02] LABS: Add Manual Diff / Slide Review NO; Basophils Absolute Auto 0 /uL (0-100); Basophils Percent Auto 0.7 % (0-2); Eosinophils Absolute Auto 100 /uL (0-450); Eosinophils Percent Auto 0.9 % (2-4); Hematocrit 30.6 % (36-46); Hemoglobin 10.2 g/dL (12.0-16.0); Lymphocytes Absolute Auto 1200 /uL (1100-4500); Lymphocytes Percent Auto 18.4 % (25-40); Mean Corpuscular HGB Conc 33.3 % (30-36); Mean Corpuscular Hemoglobin 34.2 PG (26-34); Mean Corpuscular Volume 102.6 fL (80-100); Monocytes Absolute Auto 800 /uL (0-900); Monocytes Percent Auto 12.8 % (3-14); Neutrophils Absolute Auto 4300 /uL (1500-7000); Neutrophils Percent Auto 67.2 % (50-75); Platelet Count 247 X10^3/uL (150-400); Red Blood Cell Count 2.98 X10^6/uL (4.0-5.2); Red Cell Distribution Width 20.3 % (11.6-14.8); White Blood Cell Count 6.5 X10^3/uL (4.5-11.0)
[2024-04-24 06:19] LABS: Alanine Aminotransferase 27 IU/L (<35); Albumin 3.1 g/dL (3.5-5.0); Albumin Globulin Ratio 1.1 (1.0-2.8); Alkaline Phosphatase 65 U/L (38-126); Aspartate Aminotransferase 56 IU/L (14-36); Bilirubin Total 0.3 mg/dL (0.2-1.3); Blood Urea Nitrogen 6 mg/dL (7-17); Calcium 8.4 mg/dL (8.4-10.2); Carbon Dioxide 22 mmol/L (22-32); Chloride 106 mmol/L (98-107); Estimated Glomerular Filt Rate > 60 mL/min (>60); Globulin 2.7 g/dL (1.7-4.1); Glucose 99 mg/dL (70-100); HEMOLYSIS < 15 (0-50); Magnesium 1.5 mg/dL (1.6-2.3); Potassium 3.9 mmol/L (3.4-5.1); Sodium 135 mmol/L (137-145); Total Protein 5.8 g/dL (6.3-8.2)
[2024-04-24 06:23] LABS: Anisocytosis 1+; Macrocytosis 1+; Platelet Estimate Adequate on smear
[2024-04-24 08:00] VITALS: BP 145/98; PULSE 98; RESP 17; TEMP 36.9; O2SAT 100
[2024-04-24] MEDS: ACETAMINOPHEN 325 MG TABLET 975 MG PO ×2 (08:38→18:22)
[2024-04-24] MEDS: PANTOPRAZOLE DR 40 MG TABLET PO (09:00)
[2024-04-24] MEDS: ENOXAPARIN 40 MG/0.4 ML SYRINGE SUBCUT (09:00)
[2024-04-24] MEDS: predniSONE 20 MG TABLET 40 MG PO (09:00)
[2024-04-24] MEDS: MAGNESIUM CHLORIDE 64 MG TABLET 128 MG PO (09:00)
[2024-04-24] MEDS: FOLIC ACID 1 MG TABLET PO (09:00)
[2024-04-24] MEDS: CYANOCOBALAMIN (VITAMIN B-12) 100 MCG TABLET PO (09:00)
[2024-04-24] MEDS: THIAMINE 100 MG TABLET PO (09:00)
[2024-04-24] MEDS: MULTIVITAMIN 1 TABLET 1 TAB PO (09:00)
[2024-04-24] MEDS: GABAPENTIN 300 MG CAPSULE PO ×3 (09:00→20:12)
[2024-04-24] MEDS: LORazepam 0.5 MG TABLET PO ×2 (09:00→18:36)
--- NOTE | 2024-04-24 11:03 | PC.NURSE ---
Pt c/o pain, administered as ordered. Pt and friend at bedside reporting pain management was difficult yesterday during the day, stating, I felt like it was being withheld from me. This RN reassured pt that this RN would administer it as ordered and if pain was still uncontrolled, this RN would notify provider. Pt verbalized understanding. Provider at bedside. Care ongoing.
[2024-04-24] MEDS: OXYCODONE IR 5 MG TABLET 10 MG PO ×4 (11:12→23:15)
[2024-04-24 12:00] VITALS: BP 140/105; PULSE 91; RESP 16; TEMP 36.5; O2SAT 97
[2024-04-24] MEDS: IBUPROFEN 400 MG TABLET 600 MG PO ×3 (12:57→23:15)
--- NOTE | 2024-04-24 13:40 | PM.PN.1 ---
Subjective Subjective Interval history: 49 year old female admitted with bilateral foot pain, possible cellulitis vs bilateral peripheral neuropathy and asymptomatic bacteriuria. She is being treated empirically w/Rocephin/vanco. Pt was initiated on prednisone 40 mg daily x 5 days yesterday for possible gout. By last evening her pain and swelling was improving. Patient refers she did have a difficult night yesterday secondary to pain. She does overall feel as though her pain is better today compared to yesterday. She did have some bogginess to her heels last evening and I asked her to float her heels overnight. She was able to do that successfully. She had a difficult time sleeping due to her discomfort. She notes that the lorazepam was helpful. She feels if she could get her pain better managed she would feel much better. Today she has been able to touch her feet and to bend her toes a bit more, which she could not do yesterday. Exam Vital Signs (past 8 hours): - 04/23/24 12:00 04/23/24 16:00 04/23/24 16:00 Temperature 98 F Pulse Rate 18 L 97 H Respiratory Rate 16 19 Blood Pressure 129/89 Pulse Oximetry 98 Oxygen Flow Rate 0 Oxygen Delivery Method Room Air Oxygen Flow Rate 0 Narrative Exam Narrative: GEN: Middle-aged female, Alert and oriented x 3, NAD HEENT:NC, Face symmetric CHEST: Respiratory excursions symmetric, CTAB CV: RRR, no M/R/G ABD: Soft, NT/ND, BT present in all 4 quadrants, no organomegaly or masses EXTR: warm, well perfused, no C/C, decreased swelling to the toes on both feet. Bilateral heels have some mild persistent bogginess but significantly improved compared with last evening. Decreased tenderness with flexion/extension of the 2nd through 5th toes on both feet. No pain with palpation of bilateral heels or arches. Pain is more localized to the MTP joints of both great toes, left greater than right. There is also more localized erythema to the great toes bilaterally. SKIN: warm and dry, no rash NEURO: Alert and oriented x 3, nonfocal Objective Labs 04/24/24 05:29 04/24/24 05:29 Labs: Laboratory Results - last 24 hr 04/23/24 04/23/24 05:33 11:54 WBC 5.2 RBC 3.17 L Hgb 11.0 L Hct 32.6 L MCV 102.6 H MCH 34.6 H MCHC 33.7 RDW 20.2 H Plt Count 241 Neut % (Auto) 68.1 Lymph % (Auto) 17.3 L [place] % (Auto) 11.2 Eos % (Auto) 3.0 Baso % (Auto) 0.4 Neut # (Auto) 3500 Lymph # (Auto) 900 L [place] # (Auto) 600 Eos # (Auto) 200 Baso # (Auto) 0 Platelet Estimate Adequate on smear RBC Morphology See below Anisocytosis 1+ H Macrocytosis 1+ H Sodium 135 L Potassium 4.5 Chloride 108 H Carbon Dioxide 23 BUN 5 L Creatinine 0.47 L Estimated GFR > 60 BUN/Creatinine Ratio 10.6 Glucose 99 Uric Acid 2.2 L Calcium 8.6 Magnesium 1.6 Total Bilirubin 0.2 AST 49 H ALT 23 Alkaline Phosphatase 69 Total Protein 6.1 L Albumin 3.2 L Globulin 2.9 Albumin/Globulin Ratio 1.1 Vancomycin Trough 17.5 PFSH Social History household members: significant other and children Smoking Status: Current every day smoker Assessment & Plan Assessment & Plan narrative: 1. Bilat foot pain with swelling localized to the forefoot/toes She is currently being treated empirically for cellulitis. Will discontinue vancomycin. Continue empiric ceftriaxone for now. She reported she is eating a fair amount of crab and shrimp at baseline, as well as drinking more alcohol recently compared to her prior baseline. She will decrease her intake. On day 2/5 of prednisone 40 mg. Overall, appearing to respond well to this intervention. Will increase oxycodone from 5 mg every 4 hours to 5-10 mg every 4 hours as needed. Will change ibuprofen from 800 mg every 8 hours to 600 mg every 6 hours. Continue to float her heels to reduce risk of pressure injury to the heels. Although her uric acid level was low, I suspect her intake has exceeded her body's ability to metabolize purines, leading to episodes of gout. Anticipate reduction of her intake of shellfish and alcohol will decrease likelihood of recurring gout. I did send an ABRAHAM for completeness yesterday which is still pending. 2. Asymptomatic bacteriuria Urine culture grew greater than 100,000 colonies of E coli, pansensitive. She was asymptomatic. 3. Macrocytic anemia B12 was within normal limits. Methylmalonic acid pending. She does admit to drinking more heavily recently. This may be the reason for her macrocytosis. 4. Leukopenia Resolved. 5. Hyponatremia Sodium is stable at 135. 6. Hypomagnesemia Magnesium mildly low at 1.5 today. Repleting orally. Code status Full Prophy On lovenox Dispo Anticipate she will be able to discharge home tomorrow. Encouraged her to begin walking around today if she is comfortable. Time-Based Coding :: [TOTAL MINUTES] spent with patient and on the chart (including review of chart, obtaining history, exam, reviewing outside data, placing orders, documenting exam and treatment plan, and counseling patient) on [DATE]. Quality VTE Deep Vein Thrombosis/Pulmonary Embolism Present on Admission: No
--- NOTE | 2024-04-24 14:45 | CM.DPC ---
DCP Cont: Per MD, anticipate pt might have Gout flare and changed her medications and started steroids to determine if pt has relief. Still pain management issues but anticipates possible d/c Thursday if stable. DAYAMI spoke briefly to pt's Sig Other who confirms he is available for support and assist at d/c and hopeful pt has pain better managed soon. LANI Archibald
[2024-04-24 19:00] VITALS: BP 149/96; PULSE 99; RESP 18; TEMP 36.9; O2SAT 99
[2024-04-24] MEDS: CYCLOBENZAPRINE 10 MG TABLET PO (20:14)
[2024-04-24 20:15] VITALS: PULSE 99
[2024-04-24] MEDS: cloNIDine 0.1 MG TABLET PO (20:15)
[2024-04-24 23:00] VITALS: BP 138/93; PULSE 104; RESP 18; TEMP 36.6; O2SAT 99
--- NOTE | 2024-04-25 01:18 | PC.NURSE ---
Patient's ultrasound guided PIV infiltrated. Attempted although unsuccessful, patient stated she has been a difficult stick in the past. Notified CATE Vigil to leave out IV overnight. IM Ceftriaxone ordered.
[2024-04-25] MEDS: cefTRIAXone 1,000 MG VIAL 1000 MG IM (02:14)
[2024-04-25] MEDS: LIDOCAINE 1% 20 ML 2.1 ML INJ (02:14)
[2024-04-25 03:00] VITALS: BP 141/99; PULSE 105; RESP 18; TEMP 37.2; O2SAT 100
[2024-04-25] MEDS: OXYCODONE IR 5 MG TABLET 10 MG PO ×5 (03:27→22:12)
[2024-04-25] MEDS: CYCLOBENZAPRINE 10 MG TABLET PO (03:51)
[2024-04-25] MEDS: ACETAMINOPHEN 325 MG TABLET 975 MG PO (05:55)
[2024-04-25] MEDS: IBUPROFEN 400 MG TABLET 600 MG PO ×3 (05:55→17:54)
[2024-04-25 06:01] VITALS: BP 146/98; PULSE 99
[2024-04-25] MEDS: cloNIDine 0.1 MG TABLET PO ×2 (06:01→15:01)
[2024-04-25] MEDS: CYANOCOBALAMIN (VITAMIN B-12) 100 MCG TABLET PO (08:58)
[2024-04-25] MEDS: MULTIVITAMIN 1 TABLET 1 TAB PO (08:59)
[2024-04-25] MEDS: predniSONE 20 MG TABLET 40 MG PO (08:59)
[2024-04-25] MEDS: THIAMINE 100 MG TABLET PO (08:59)
[2024-04-25] MEDS: FOLIC ACID 1 MG TABLET PO (08:59)
[2024-04-25] MEDS: GABAPENTIN 300 MG CAPSULE PO ×3 (08:59→21:01)
[2024-04-25] MEDS: PANTOPRAZOLE DR 40 MG TABLET PO (08:59)
[2024-04-25] MEDS: ENOXAPARIN 40 MG/0.4 ML SYRINGE SUBCUT (08:59)
[2024-04-25 09:00] VITALS: BP 128/87; PULSE 108; RESP 17; TEMP 36.4; O2SAT 99
--- NOTE | 2024-04-25 10:18 | PM.PN.1 ---
Subjective Subjective Interval history: S: She was improving but still unable to walk. She would like to stay another day. The redness of her feet has improved, she describes nerve like pain in the bottom of her feet. Exam Vital Signs (past 8 hours): - 04/25/24 03:00 04/25/24 06:01 04/25/24 09:00 Temperature 98.9 F 97.5 F L Pulse Rate 105 H 99 H 108 H Respiratory Rate 18 17 Blood Pressure 141/99 H 146/98 H 128/87 Pulse Oximetry 100 99 Oxygen Flow Rate 0 0 Oxygen Delivery Method Room Air Oxygen Flow Rate 0 Narrative Exam Narrative: NAD, alert and oriented. Fluent speech. Lungs are clear, normal rate and effort. Heart is regular, no murmur gallop or rub. Abdomen is soft, non distended. Extremities are free of edema. Feet are not red, or swollen. The skin is tender to touch. Objective Labs 04/24/24 05:29 04/24/24 05:29 [facility] Social History household members: significant other and children Smoking Status: Current every day smoker Assessment & Plan Assessment & Plan narrative: 1. Bilateral foot pain with swelling localized to the forefoot/toes She is currently being treated empirically for cellulitis. Will discontinue vancomycin. Continue empiric ceftriaxone for now. She reported she is eating a fair amount of crab and shrimp at baseline, as well as drinking more alcohol recently compared to her prior baseline. She will decrease her intake. On day 2/5 of prednisone 40 mg. Overall, appearing to respond well to this intervention. Will increase oxycodone from 5 mg every 4 hours to 5-10 mg every 4 hours as needed. Will change ibuprofen from 800 mg every 8 hours to 600 mg every 6 hours. Continue to float her heels to reduce risk of pressure injury to the heels. Although her uric acid level was low, I suspect her intake has exceeded her body's ability to metabolize purines, leading to episodes of gout. Anticipate reduction of her intake of shellfish and alcohol will decrease likelihood of recurring gout. I did send an ABRAHAM for completeness yesterday which is still pending. 2. Asymptomatic bacteriuria Urine culture grew greater than 100,000 colonies of E coli, pansensitive. She was asymptomatic. 3. Macrocytic anemia B12 was within normal limits. Methylmalonic acid pending. She does admit to drinking more heavily recently. This may be the reason for her macrocytosis. 4. Leukopenia Resolved. 5. Hyponatremia Sodium is stable at 135. 6. Hypomagnesemia Magnesium mildly low at 1.5 today. Repleting orally. PLAN: -continue prednisone -trial of Neurontin 100 b.i.d.. -Ativan for anxiety from steroids. -We will give her 1 more day of treatment as she was unable to weight bear. Have asked her family to look for a wheelchair. Anticipate discharge on April 26. Code status Full Prophy On lovenox Time-Based Coding :: [TOTAL MINUTES] spent with patient and on the chart (including review of chart, obtaining history, exam, reviewing outside data, placing orders, documenting exam and treatment plan, and counseling patient) on [DATE]. Quality VTE Deep Vein Thrombosis/Pulmonary Embolism Present on Admission: No
[2024-04-25] MEDS: LORazepam 0.5 MG TABLET PO ×2 (10:34→18:49)
--- NOTE | 2024-04-25 14:42 | DIET.PN1 ---
Dietary Progress Note Assessment: F/u at bedside with pt. Pt reports much improved appetite - eating 75-100% meals and having a yogurt parfait as snack between meals. No further nutritional interventions needed. Will continue to follow PO intakes. Ht: 162.56 cm Wt: 54.431 kg BMI: 20.5 UBW: Last BM: 04/23/24 (04/22/24 22:00) MNA: 11 Anselmo Score: 21 Diet: 04/21/24 Dinner General (Regular) Diet Diet Modifications: Food Texture: Level 7 - Regular Liquid Consistency: Level 0 - Thin Nutrition Percent Meal Consumed 75% 04/24/24 09:00 Labs: RBC 2.98 X10^6/uL (4.0-5.2) L 04/24/24 05:29 Hgb 10.2 g/dL (12.0-16.0) L 04/24/24 05:29 Hct 30.6 % (36-46) L 04/24/24 05:29 Creatinine 0.40 mg/dL (0.52-1.04) L 04/24/24 05:29 Lactate 1.1 mmol/L (0.7-2.1) 04/22/24 05:46 Electronically Signed by: Roberta Cain 04/25/24 14:42 Clinical Dietitian [address] [address]
[2024-04-25 17:00] VITALS: BP 138/91; PULSE 91; RESP 17; TEMP 37; O2SAT 98
[2024-04-25 19:00] VITALS: BP 148/94; PULSE 98; RESP 18; TEMP 36.6; O2SAT 100
[2024-04-25 23:00] VITALS: BP 162/105; PULSE 92; RESP 20; TEMP 36.8; O2SAT 99
[2024-04-26] MEDS: LORazepam 0.5 MG TABLET PO ×3 (00:06→15:16)
[2024-04-26] MEDS: IBUPROFEN 400 MG TABLET 600 MG PO ×4 (00:06→17:03)
[2024-04-26] MEDS: HYDROMORPHONE 0.5 MG INJ IV ×3 (00:10→15:18)
[2024-04-26] MEDS: cefTRIAXone 1,000 MG in SODIUM CHLORIDE 0.9% 100 ML 200 MG IV (01:15)
--- NOTE | 2024-04-26 04:26 | PC.NURSE ---
At start of shift, MAURA USG PIV was occluded. ANUJ Zavala from ED came to troubleshoot; PIV at first flushing but then infiltrated. ANUJ Zavala removed PIV, replaced with USG RFA PIV. At 0000, pt calls reporting 10/10 stabbing pain in BLE, shaky voice and wincing. Provided prescribed 0.5mg dilauded for breakthrough pain (see MAR). Since then, pt sleeping or resting comfortably; pt reports I feel much better and am able to sleep. Bed low/locked, call light within reach, plan of care continues.
[2024-04-26] MEDS: OXYCODONE IR 5 MG TABLET 10 MG PO ×4 (04:40→17:03)
[2024-04-26 08:50] VITALS: BP 145/89; PULSE 102; RESP 20; TEMP 36.6; O2SAT 98
[2024-04-26] MEDS: CYANOCOBALAMIN (VITAMIN B-12) 100 MCG TABLET PO (08:59)
[2024-04-26] MEDS: MULTIVITAMIN 1 TABLET 1 TAB PO (09:00)
[2024-04-26] MEDS: predniSONE 20 MG TABLET 40 MG PO (09:00)
[2024-04-26] MEDS: PANTOPRAZOLE DR 40 MG TABLET PO (09:00)
[2024-04-26] MEDS: GABAPENTIN 300 MG CAPSULE PO ×2 (09:00→13:59)
[2024-04-26] MEDS: FOLIC ACID 1 MG TABLET PO (09:00)
[2024-04-26] MEDS: ENOXAPARIN 40 MG/0.4 ML SYRINGE SUBCUT (09:01)
[2024-04-26] MEDS: ACETAMINOPHEN 325 MG TABLET 975 MG PO (13:59)
--- NOTE | 2024-04-26 16:09 | PM.DS.1 ---
History of Present Illness History of Present Illness Chief complaint: bilat foot pain Narrative: From H&P: 49-year-old female with past medical history of GERD and muscle spasm presents with concerns for cellulitis of both feet. Per the patient's report, the patient does have bilateral foot pain for the last month. The patient denies any prior history of athlete's foot. The patient however noted that the redness and pain worsens over the last few days of her both of her feet. Redness is mainly on the lateral side and bottom of her feet. The patient otherwise denies any fever, chills, nausea, vomiting, diarrhea or chest pain. The patient also denies any cough, shortness of breath or dysuria. The patient states that she has not changed any footwear or has any puncture wounds in her feet. In the emergency room, the patient was hemodynamically stable other than tachycardia. However the patient was hypothermic and lactic acid was 3.2. 2 L IV fluid and IV ceftriaxone given due to concern for cellulitis in both feet. Repeat lactic acid 3.1. Due to the fact that the patient complain of pain in her feet, x-ray of both her feet were done which shows no acute abnormality. UA came back positive for UTI. Vancomycin was added due to concern for cellulitis of both feet. Discharge Providers Provider Date of admission: 04/23/24 10:24 Discharge Date: 04/26/24 Primary care physician: Doctor Haim MD Consults: 04/21/24 07:04 Consult to Dietitian, Adult Routine Comment: Reason For Exam: poor nutrition Discharge provider: Stanislaw Doan MD Summary Hospital Course Discharge Diagnosis: 1. Bilateral foot pain with swelling localized to the forefoot/toes, present on admission and improved. She is currently being treated empirically for cellulitis. Will discontinue vancomycin. Continue empiric ceftriaxone for now. She reported she is eating a fair amount of crab and shrimp at baseline, as well as drinking more alcohol recently compared to her prior baseline. She will decrease her intake. On day 2/5 of prednisone 40 mg. Overall, appearing to respond well to this intervention. Will increase oxycodone from 5 mg every 4 hours to 5-10 mg every 4 hours as needed. Will change ibuprofen from 800 mg every 8 hours to 600 mg every 6 hours. Continue to float her heels to reduce risk of pressure injury to the heels. Although her uric acid level was low, I suspect her intake has exceeded her body's ability to metabolize purines, leading to episodes of gout. Anticipate reduction of her intake of shellfish and alcohol will decrease likelihood of recurring gout. I did send an ABRAHAM for completeness yesterday which is still pending. 2. Asymptomatic bacteriuria, present on admission and active. Urine culture grew greater than 100,000 colonies of E coli, pansensitive. She was asymptomatic. 3. Macrocytic anemia, stable. B12 was within normal limits. Methylmalonic acid pending. She does admit to drinking more heavily recently. This may be the reason for her macrocytosis. 4. Leukopenia, present on admission and resolved. 5. Hyponatremia, present on admission and stable. Sodium is stable at 135. 6. Hypomagnesemia, present on admission and improved. Magnesium mildly low at 1.5 today. Repleting orally. Hospital Course: She was admitted initially treated with antibiotics for possible cellulitis. Then the physician felt that this may relate to gout and steroids were started. She did describe a bilateral neuropathic type of feeling which also led to the initiation of Neurontin. Saw her her feet appeared unremarkable and she would good pulses. I elected just to complete courses of antibiotics and continue steroids for a short time. We will continue her on Neurontin and have encouraged a close follow up with her primary care provider. The exact cause of her foot pain is somewhat unclear. Status at Discharge Cognitive/behavioral status at discharge: oriented Functional status at discharge: independent ambulation Overall status at discharge: patient is progressing back to baseline Time Spent with Patient Time spent: Greater than 30 minutes Exam Vital Signs (past 8 hours): - 04/26/24 08:50 Temperature 98 F Pulse Rate 102 H Respiratory Rate 20 Blood Pressure 145/89 H Pulse Oximetry 98 Oxygen Flow Rate 0 Oxygen Delivery Method Room Air Oxygen Flow Rate 0 Narrative Exam Narrative: NAD, alert and oriented. Fluent speech. Lungs are clear, normal rate and effort. Heart is regular, no murmur gallop or rub. Abdomen is soft, non distended. Extremities are free of edema. Objective ECG Impression: Sinus tachycardia Imaging Multile studies: : Radiologist's impression: CXR: Sinus tachycardia Feet X-rays: PROCEDURE: XR FOOT LT MIN 3V INDICATIONS: left foot pain TECHNIQUE: 3 views of the foot were acquired. COMPARISON: None. FINDINGS: Bones: No fractures or dislocations. No suspicious bony lesions. Soft tissues: No tibiotalar joint effusion. Achilles tendon appears normal. IMPRESSION: No acute bony abnormality. PROCEDURE: XR FOOT RT MIN 3V INDICATIONS: right foot pain TECHNIQUE: 3 views of the foot were acquired. COMPARISON: None. FINDINGS: Bones: No fractures or dislocations. No suspicious bony lesions. Soft tissues: No tibiotalar joint effusion. Achilles tendon appears normal. IMPRESSION: No acute bony abnormality. Labs 04/24/24 05:29 04/24/24 05:29 [facility] Social History household members: significant other and children Smoking Status: Current every day smoker Discharge Assessment & Plan Assessment and Plan Assessment: 1. Bilateral foot pain with swelling localized to the forefoot/toes (treated for cellulitis and possible gout), present on admission and improved. 2. Asymptomatic bacteriuria, present on admission and active. Urine culture grew greater than 100,000 colonies of E coli, pansensitive. 3. Macrocytic anemia, stable. 4. Leukopenia, present on admission and resolved. 5. Hyponatremia, present on admission and stable. 6. Hypomagnesemia, present on admission and improved. Plan of Treatment: Stable for discharge home, we will continue antibiotics for 5 more days and prednisone for possible gout for 5 more days. In addition she was started on Neurontin he will be given a small supply of code on the lorazepam. She was urged to see a primary care doctor for follow up and reassessment. Discharge Plan Discharge Plan Patient Disposition: Home Provider Discharge Comment: Stable for discharge home with close follow up with PCP. Weight bear as tolerated. Discharge orders & Medications Prescriptions: New cyclobenzaprine 10 mg Tablet 10 mg PO TID PRN (Reason: muscle spasm) Qty: 15 0RF prednisone 20 mg Tablet 40 mg PO DAILY Qty: 20 0RF lorazepam 0.5 mg Tablet 0.5 mg PO Q6HR PRN (Reason: Anxiety) Qty: 15 0RF pantoprazole 40 mg Tablet,Delayed Release (Dr/Ec) 40 mg PO DAILY Qty: 30 0RF gabapentin 300 mg Capsule 300 mg PO TID Qty: 90 0RF oxycodone 5 mg Tablet 10 mg PO Q4HR PRN (Reason: Pain, Severe (7-10)) Qty: 15 0RF cephalexin 500 mg capsule 500 mg PO QID Qty: 20 0RF Follow up/Referrals: Miscellaneous,DoctorMD [Primary Care Provider] - Diet/Activity/Treatments Activity: Weight bear as tolerated. Visit Report/Discharge Packet Instructions: DI for Cellulitis -- Adult, DI for Gout Stand Alone Forms: Patient Portal/API Discharge Data Primary Care Provider: Doctor Haim Quality VTE Deep Vein Thrombosis/Pulmonary Embolism Present on Admission: No
[2024-04-26 18:36] LABS: ANA Screen, IFA Negative (.)
[2024-04-27 07:09] LABS: Methylmalonic Acid,Serum 93 nmol/L (0-378)
== END 2024-04-26 18:40 | disposition home or self-care (01) | DRG 383 ==
LOC: ED 04-21 01:38 → AC 04-21 06:02
PROVIDERS: Family Medicine; Internal Medicine; Admitting Provider Internal Medicine; Emergency Provider Emergency Medicine; Referring Provider Emergency Medicine; Visit Provider Internal Medicine
DX: L03.116 Cellulitis of left lower limb (principal); L03.115 Cellulitis of right lower limb; R00.0 Tachycardia, unspecified; K21.9 Gastro-esophageal reflux disease without esophagitis; R82.71 Bacteriuria; B96.20 Unspecified Escherichia coli [E. coli] as the cause of diseases classified elsewhere; D53.9 Nutritional anemia, unspecified; E87.1 Hypo-osmolality and hyponatremia; E83.42 Hypomagnesemia; M10.9 Gout, unspecified; G62.9 Polyneuropathy, unspecified; F17.210 Nicotine dependence, cigarettes, uncomplicated; Z86.16 Personal history of COVID-19
CPT/HCPCS: 36415; 71045; 73630; 80053; 80202; 80305; 81001; 82550; 82607; 83605; 83735; 83921; 84145; 84550; 85025; 85651; 86038; 86140; 87086; 93005; 93010; 96361; 96365; 96375; 99284; 99291; 99406; G0378; J0696; J1171; J1650; J1885; J3370